=== PATIENT | male | born 1970 | race Caucasian/White ===

== ENCOUNTER 2018-08-23 06:19 | Emergency (ER) | payer SELFPAY ==
[2018-08-23 06:20] VITALS: PULSE 85; RESP 16; TEMP 36.4; O2SAT 97; BMI 28.7
--- NOTE | 2018-08-23 06:28 | ED.DCSUM_ITS ---
- ER Visit Summary Date of Service: 08/23/18 Chief Complaint: Hives History of Present Illness: The patient is a 47 M who presents with hives. He states that the symptoms actually started last night. He states he developed some itching and burning on the backside of his legs and his arms. When he woke up this morning he noticed that he had hives. He denies any new irritants such as soaps, lotions, detergents or pets. He states this happened a long time ago but is not quite sure what exactly the cause was at that time as well. He denies any insect stings. He took nothing for this at home. He denies any shortness of breath or tongue swelling. Physical Examination: Vital signs reviewed. HEENT exam is normal. There is no tongue or throat swelling. Uvula is midline. Heart is regular rate and rhythm without murmurs. Lungs are clear to auscultation bilaterally. Abdomen is soft and nontender. Extremities reveal no edema. Skin exam reveals hives on the arms and legs. There is no erythema. Neurologic exam normal. Test Results: None performed Emergency Department Course and Treatment: I am unclear the etiology of the patient's urticaria. Patient will be given Benadryl and prednisone here. I wi ll give him a prescription for prednisone at home. I will observe him here in the emergency department and then will be discharged with prednisone and to use Benadryl. He will follow-up with his primary care physician. Treatment Plan: [] Disposition: Discharge Impression: Urticaria This note was generated with [employer] dictation software. It may contain incorrect words, spelling, and punctuation that were not noted in review of the chart prior to signing ED Disposition - Plan for ED Patient: Chief Complaint: Allergic Reaction Referrals: Josee Prieto MD [Primary Care Provider] -
--- NOTE | 2018-08-23 06:28 | ED.DEP ---
ED Disposition - Plan for ED Patient: Disposition: Home or Assisted Living Chief Complaint: Allergic Reaction Instructions: ED Urticaria Prescriptions: Prednisone [Deltasone] 40 mg PO DAILY #10 tab Referrals: Josee Prieto MD [Primary Care Provider] -
[2018-08-23] MEDS: DiphenhydrAMINE 25 MG Capsule PO (06:32)
[2018-08-23] MEDS: predniSONE 20 MG Tablet 40 MG PO (06:32)
[2018-08-23 07:00] VITALS: BP 134/90; RESP 16
== END 2018-08-23 07:00 | disposition home or self-care (01) ==
LOC: ED 06:36
PROVIDERS: Emergency Provider Emergency Medicine; Family Provider Internal Medicine; PCP Internal Medicine
DX: L50.9 Urticaria, unspecified (principal); I10 Essential (primary) hypertension; Z72.0 Tobacco use; Z79.899 Other long term (current) drug therapy
CPT/HCPCS: 99283

== ENCOUNTER 2019-07-23 21:38 | Emergency (ER) | payer SELFPAY ==
[2019-07-23 21:39] VITALS: BP 160/102; PULSE 61; RESP 16; TEMP 36.4; O2SAT 98; BMI 29.7
--- NOTE | 2019-07-23 21:52 | NURSING ---
pt c/o pain starting in left flank radiating into left testicle. denies any burning or painful urination.
--- NOTE | 2019-07-23 21:58 | CT_ITS ---
STUDY: CT ABDOMEN AND PELVIS WITHOUT CONTRAST REASON FOR EXAM: Male, 48 years old. Left flank and back pain beginning tonight. History of kidney stones and hypertension. RADIATION DOSAGE (If Supplied By Facility): CTDIvol = ( 7.67 ) mGy, DLP = ( 383.36 ) mGycm TECHNIQUE: Transaxial images were obtained from the dome of the diaphragm to the symphysis pubis without oral contrast, and without intravenous contrast. Sagittal and coronal images were reconstructed. Individualized dose optimization techniques were used for this CT. COMPARISON: CT of the abdomen and pelvis, November 20, 2015. FINDINGS: The visualized lung bases are unremarkable. The visualized portions of the heart are within normal limits. Normal liver. Normal gallbladder and extrahepatic biliary system. There is a benign calcified granuloma of the spleen. Normal pancreas. Normal bilateral adrenal glands. Normal right kidney. Normal right ureter. The left kidney is normal in size and cortical thickness. There is a 4 mm nonobstructing calculus in an upper pole calyx. Normal left ureter. Normal visualized stomach. Normal small intestine. Normal colon. C lies in the left pelvis with the normal appendix lying adjacent to the rectosigmoid colon. The Normal abdominal aorta. Normal inferior vena cava. Normal retroperitoneum. Normal urinary bladder. Prostate is enlarged with central calcifications. There are phleboliths in the pelvis without lymphadenopathy. No free air or free fluid is seen within the peritoneal cavity. Normal abdominal wall. There are diffuse degenerative changes of the visualized lumbar spine. CT/Abdomen/Pelvis without Cont IMPRESSION: 1. Nonobstructing left renal calculus. There is no other evidence of renal, ureteral or urinary bladder abnormality. A left ureteral calculus and hydronephrosis seen on the earlier study is no longer present. 2. No other evidence of acute intra-abdominal process or major interval change. Electronically Signed: Singh Gorman DO at 22:48 EDT Tel [phone], Service support ,
[2019-07-23] MEDS: Ketorolac 30 MG/ML Syringe IV (22:14)
[2019-07-23] MEDS: Morphine 4 MG/ML Syringe IV ×2 (22:15→23:28)
[2019-07-23] MEDS: 0.9% Normal Saline 1,000 ML 250 ML IV (22:15)
[2019-07-23] MEDS: Ondansetron 4 MG/2 ML Vial IV (22:15)
--- NOTE | 2019-07-23 22:18 | ED.DCSUM_ITS ---
- ER Visit Summary Date of Service: 07/23/19 Chief Complaint: Left flank pain History of Present Illness: The patient is a [address] Prieto. He reports that this evening he picked up a boat motor and carried down the steps. He had no pain during this. He walked over to begin filling up a bucket and had the abrupt onset of a left flank pain that radiates into the left side of his abdomen and into his left testicle. He reports that is 10 out of 10 at worst and 5-10 currently. Describes as aching. Is worsened by movement and standing up. Is relieved by position. He denies any relation to his legs. No numbness or weakness in his legs. No problems with his bowels or his bladder. No groin numbness. Patient reports is been nauseated with this. However, he is not vomited. He denies any dysuria or frequency. He does have a history of kidney stones. Physical Examination: Vitals: Stable. Afebrile. General: Well-nourished and well-developed. Head: Normocephalic atraumatic. Neck: Supple, no lymphadenopathy. No JVD. Nontender. Cardiovascular: Regular rate and rhythm. No murmurs. Respiratory: No respiratory distress. Clear to auscultation bilaterally. Abdominal: Soft, nontender, nondistended, normal bowel sounds. No guarding, rebound, or peritoneal signs. Back: Nontender. Extremities: Nontender, no edema. Skin: Normal color, no rash. Neurologic: Alert and oriented ?3. Cranial nerves II through XII are intact. Normal strength and sensation. Psych: Normal affect. Test Results: UA shows greater than 100 red blood cells. No evidence of infection. CT flank was read by the radiologist as nonobstructing left renal c alculus. There is no evidence of renal, ureteral, or urinary bladder abnormality. A left ureteral calculus and hydronephrosis seen on the earlier study is no longer present. However, on my review of the CT I believe that there is a very small stone just proximal to the left UVJ. Emergency Department Course and Treatment: Patient had an IV placed. He was given a liter normal saline. He was given Toradol, Zofran, and morphine IV. He is resting more comfortably. Treatment Plan: Patient will be discharged with Percocet, naproxen, and Zofran. Instructed follow-up Dr. Pena in 1 week if not improving. Return to the emergency department for any worsening symptoms. Disposition: To home in improved and stable condition. Impression: 1. Left ureterolithiasis. This note was generated with [employer] dictation software. It may contain incorrect words, spelling, and punctuation that were not noted in review of the chart prior to signing ED Disposition - Plan for ED Patient: Instructions: KIDNEY STONE w/ Colic Prescriptions: Naproxen [Naprosyn] 500 mg PO BID #14 tablet Oxycodone HCl/Acetaminophen [Percocet 5/325] 1 tablet PO Q6H PRN PRN 5 Days #20 tablet PRN Reason: Pain Ondansetron [Zofran Odt] 4 mg PO Q8H PRN PRN #10 tablet PRN Reason: Nausea Referrals: Xavier Pena MD [STAFF PHYSICIAN] - 1 Week if not improving
[2019-07-23 22:47] LABS: Bacteria 0 SEEN /hpf (None Seen); Squamous Epithelial Cells - UA 0 SEEN /hpf (0-5)
[2019-07-23 22:52] LABS: Color, Urine Yellow (Yellow); Glucose, Dipstick Normal (Normal); Ketone-Dipstick 5 mg/dl (Negative); Leukocyte Esterase-Dipstick 25 /ul (Negative); Nitrite-Dipstick Negative (Negative); Occult Blood-Urine 250 /ul (Negative); Protein-Dipstick 30 mg/dl (Negative); Specific Gravity, Urine 1.025 (1.002-1.030); Urine Bilirubin Dipstick Negative (Negative); Urine Clarity Sl. Cloudy (Clear); Urine Urobilinogen 4 mg/dl (Normal)
[2019-07-23 22:57] LABS: Red Blood Cells-Urine > 100 SEEN /hpf (0-5); White Blood Cells 0-5 SEEN /hpf (0-5)
[2019-07-23 22:58] LABS: Mucous, Urine 2+ /hpf (<or=2+)
[2019-07-23 23:48] VITALS: BP 152/125; PULSE 71; RESP 18; O2SAT 97
== END 2019-07-23 23:49 | disposition home or self-care (01) ==
LOC: ED 22:37
PROVIDERS: Emergency Provider Emergency Medicine; Family Provider Internal Medicine; PCP Internal Medicine
DX: N13.2 Hydronephrosis with renal and ureteral calculous obstruction (principal); Z79.899 Other long term (current) drug therapy; Z87.442 Personal history of urinary calculi
CPT/HCPCS: 74176; 81001; 96361; 96374; 96375; 96376; 99284; J7030; A4216; J2405

== ENCOUNTER 2020-05-12 22:33 | Emergency (ER) | payer SELFPAY ==
[2020-05-12 22:34] VITALS: BP 139/92; PULSE 79; RESP 18; TEMP 36.4; O2SAT 97; BMI 27.8
--- NOTE | 2020-05-12 22:52 | ED.DCSUM_ITS ---
- ER Visit Summary Date of Service: 05/12/20 Chief Complaint: Right foot puncture wound History of Present Illness: The patient is a 49 M who has a puncture wound on the right foot. He stepped on a nail about 10 hours ago. He was wearing flip- flops at the time. He stepped over a piece of wood and came down the right foot under this nail. He removed it immediately. He is last tetanus is unknown. He tried ibuprofen for the pain. Today he noted that he had second toe bruising. The puncture wound was in the mid to rear portion of the bottom of the foot so he was concerned about this bruising. Physical Examination: Vital signs are reviewed. Right foot exam reveals tenderness on the bottom of the foot near this puncture wound. There is no erythema or bleeding near the puncture wound. His right second toe is diffusely tender with ecchymosis on the proximal part of the toe. He has decreased range of motion secondary to pain. Capillary refill is normal. Test Results: Right foot x-ray negative Emergency Department Course and Treatment: Patient will be treated with Cipro for his right foot wound because went through his shoe. X-rays do not show any broken bones. He was educated on local wound care. Treatment Plan: [] Disposition: Discharge Impression: Right foot puncture wound This note was generated with [employer] dictation software. It may contain incorrect words, spelling, and punctuation that were not noted in review of the chart prior to signing ED Disposition - Plan for ED Patient: Disposition: Home or Assisted Living Instructions: ED Wound Puncture Foot Prescriptions: Ciprofloxacin [Cipro] 500 mg PO BID #10 tab Transmission Status: Pending to [facility]30 Referrals: Josee Prieto MD [Primary Care Provider] -
--- NOTE | 2020-05-12 23:00 | RAD_ITS ---
HISTORY: Pt stepped on nail. Injury to second toe. 2nd toe now bruised and painful. ADDITIONAL HISTORY: None provided. EXAMINATION/TECHNIQUE: XR Foot Min 3 Views Right Number of images including paperwork: 3 COMPARISON: None FINDINGS: BONES: No acute fracture. JOINTS: No subluxation. SOFT TISSUES: No distinct foreign body. RAD/Foot min 3 Views IMPRESSION: No acute osseous abnormality. at 2339 Reported and signed by: Ronda Koroma MD Electronically Signed: Ronda Koroma MD at 23:39 EDT Tel , Service support ,
[2020-05-12] MEDS: Diphth,Pertuss(Acell),Tet Vac 0.5 ML Vial IM (23:32)
[2020-05-12 23:51] VITALS: PULSE 80; RESP 16
[2020-05-12] MEDS: Ciprofloxacin 500 MG Tablet PO (23:53)
== END 2020-05-12 23:57 | disposition home or self-care (01) ==
PROVIDERS: Emergency Provider Emergency Medicine; PCP Internal Medicine
DX: S91.331A Puncture wound without foreign body, right foot, initial encounter (principal); W45.0XXA Nail entering through skin, initial encounter; Y93.01 Activity, walking, marching and hiking; Y92.9 Unspecified place or not applicable; Y99.9 Unspecified external cause status; I10 Essential (primary) hypertension; Z79.899 Other long term (current) drug therapy
CPT/HCPCS: 73630; 90715; 99284

== ENCOUNTER 2020-05-24 19:37 | Emergency (ER) | payer SELFPAY ==
[2020-05-24 19:38] VITALS: BP 121/100; PULSE 82; RESP 16; TEMP 36.6; O2SAT 98; BMI 28.2
--- NOTE | 2020-05-24 20:47 | ED.VIS.GEN ---
History of Present Illness Chief Complaint: Numb/Ting Informant: Patient Onset: Days Context: Gradual Onset Timing: Intermittent Narrative: Patient is a 49-year-old male with longstanding history of longstanding anxiety and hypertension presenting with generalized malaise and worsening anxiety. Patient states he has not been feeling good for the past few days. He states his been feeling lightheaded. He notes his anxiety has been worse the last few days as well. He also notes he has had diarrhea but attributes that to his recent use of ciprofloxacin for a puncture wound to his foot. Patient had 4 days of the Cipro but then stopped it because he thought it was making him tired. He states today he had an episode where he was sitting down and when he went to stand up he felt that his legs were numb. He walked around for about 20 minutes and then he started to get numbness and tingling in his arms and lower back. Patient currently denies any paresthesias. He notes he is also had urinary frequency for the past day. He denies any associated dysuria or hematuria. In addition he has had some right upper dental pain for the past week. He states for a couple days his jaw was sore but that has now gone away. He now feels that he maybe has a swollen lymph node in his right neck. Patient tried taking Ativan which she has prescribed at 7 PM, about an hour and a half prior to arrival with no relief of his symptoms. He denies any associated nausea, vomiting or abdominal pain. He denies any chest pain, shortness of breath or difficulty breathing. He denies any black or blood in his stool. He states he uses tobacco and marijuana regularly but denies any illicit drug use. Past Medical History - Allergies and Home Meds Allergies/Adverse Reactions: Allergies No Known Allergies Allergy (Verified 05/24/20 19:40) Primary Care Physician: [facility]GROUP OF [facility]YSICIANS] - Josee Prieto MD [Primary Care Provider] - Past Medical History: - - Anxiety, hypertension Surgical History: noncontributory Lives: Spouse/ Significant Other Smoking Status: Current every day smoker Alcohol: None Drugs: Marijuana Review of Systems General: Reports: Malaise. Denies: Chills, Fever, Sweats Eyes: Denies: Visual changes - bilaterally, Diplopia ENT: Reports: - - Right upper dental pain. Denies: Rhinorrhea, Sore throat Cardiovascular: Denies: Chest pain, Palpitations Respiratory: Denies: Dyspnea, Cough, Dyspnea on exertion Gastrointestinal: Reports: Diarrhea. Denies: Abdominal pain, Nausea, Vomiting, Melena, Hematochezia Genitourinary: Denies: Dysuria, Hematuria, Frequency Musculoskeletal: Denies: Back pain, Extremity Pain Skin: Denies: Rash, Wounds Neurological: Reports: Parasthesia. Denies: Headache, Weakness, Numbness Psych: Reports: Anxiety. Denies: Depression, Suicidal thoughts, Suicidal ideations Physical Exam Vital Signs/Narrative: Vital Signs Temp Pulse Resp BP Pulse Ox 05/24/20 19:38 97.9 F 82 16 121/100 H 98 Inital Vital Signs reviewed: Yes General: Well nourished, Well developed, No Acute Distress Head: Normocephalic, Atraumatic Eyes: EOMI, - - Patient does not have his right eye ENT: Moist mucous membranes, No rhinorrhea, TM's clear, - - Scattered dental caries, no associated dental abscess or tenderness palpation of the specific tooth. Sublingual mucosa is soft. No oral pharyngeal edema present. Neck: Supple, Nontender Cardiovascular: Regular rate, Regular rhythm, No murmurs Respiratory: No distress, CTA bilaterally, Chest nontender Abdomen: Soft, Nontender, Nondistended, Normal bowel sounds Back: Nontender, Normal Inspection Extremities: Nontender, No edema Skin: Normal color, No rash Neurological: Alert, Oriented x3, Cranial nerves II-XII grossly intact, Normal Strength, Normal Sensation, Normal Gait, - - Normal coronation with [id number], normal entry level account executive strength as well as plantar and dorsiflexion.. Negative for: Parasthesia, Weakness, Left side facial droop, Right side facial droop Psychological: Normal affect, Normal Mood, - - Anxious, no HI or SI Diagnostic/Tx/Re-eval Chest X-Ray - ED: 1 View, Read by ED Physician, Read by Radiologist, No Acute Disease Clinical Impression(s) from Imaging Studies Chest X-Ray 05/24/20 21:03 IMPRESSION: No acute cardiopulmonary pathology. Electronically Signed: Chris Carney MD at 21:34 EDT , Service support , Laboratory Data 05/24/20 05/24/20 05/24/20 20:10 20:10 20:55 WBC 8.4 RBC 5.00 Hgb 15.5 Hct 44.5 MCV 89.0 MCH 31.0 MCHC 34.8 RDW Std Deviation 37.0 RDW Coeff of Roland 11.6 Plt Count 162 MPV 10.4 Immature Gran % (Auto) 0.400 Neut % (Auto) 69.0 Lymph % (Auto) 19.9 Harper % (Auto) 7.9 Eos % (Auto) 2.3 Baso % (Auto) 0.5 Absolute Neuts (auto) 5.8 Absolute Lymphs (auto) 1.67 Nucleated RBC % 0 Sodium 139 Potassium 3.8 Chloride 109 H Carbon Dioxide 24.0 Anion Gap 6 BUN 13 Creatinine 0.86 Estim Creat Clear Calc 103.90 Est GFR (MDRD) Af Amer 121 Est GFR (MDRD) Non-Af 100 BUN/Creatinine Ratio 15.0 Glucose 109 H Calcium 8.2 L Magnesium 2.0 Total Bilirubin 0.50 AST 11 L ALT 27 Alkaline Phosphatase 75 Troponin I < 0.015 Total Protein 6.7 Albumin 3.6 Globulin 3.1 Albumin/Globulin Ratio 1.2 Lipase 138 TSH 1.97 Urine Color Yellow Urine Clarity Clear Urine pH 6.0 Ur Specific [place] 1.015 Urine Protein Negative Urine Glucose (UA) Normal Urine Ketones Negative Urine Occult Blood Negative Urine Nitrite Negative Urine Bilirubin Negative Urine Urobilinogen Normal Ur Leukocyte Esterase Negative Urine RBC 0 SEEN Urine WBC 0 SEEN Ur Squamous Epith Cells 0 SEEN Urine Bacteria RARE Urine Mucus RARE - Rhythm Strip Rhythm Strip: Sinus Rhythm Rate: 63 Ectopy: None - EKG Initial EKG Interpretation: Sinus Rhythm, - - Sinus rhythm at a rate of 63 Normal intervals Normal axis Normal ST segments Compared to prior EKG on 07/16/2017 no significant changes - Medical Decision Making Patient is evaluated for worsening anxiety, generalized malaise and an episode of paresthesias in all of his extremities that started his legs were moved to his arms and lower back. Patient appears nontoxic and in no acute distress however he is slightly anxious. He has a normal neurologic exam. His presentation is not consistent with an acute stroke. Given his vague symptoms I did check lab work including CBC,CMP, TSH, troponin and UA. This is all grossly normal. Chest x-rays not show any acute cardiopulmonary process. EKG does not show any acute changes. Patient is given IV fluids in the emergency room. He is evaluated by case management who gives him outpatient resources. I do suspect that patient's underlying problem is his anxiety which is what is causing his symptoms today. He is counseled that is possible he could have a more subtle process that needs outpatient follow-up. He is given PCP for outpatient follow-up as well as information for the counseling center. Patient is counseled on signs and symptoms requiring return to the emergency room. Patient verbalizes agreement and understand this plan. Patient discharged home in stable and improved condition. ED Disposition - Plan for ED Patient: Disposition: Home or Assisted Living Diagnosis: Paresthesias, Stress reaction Instructions: ED Stress React, ED Paraesthesias Referrals: Josee Prieto MD [Primary Care Provider] - [facility]GROUP [facility]YSICIANS] -
[2020-05-24 20:55] LABS: Absolute Lymphocyte Count 1.67 X10^3/uL (0.83-4.51); Absolute Neutrophil Count 5.8 X10^3/uL (2.0-7.7); Basophil# 0.04 X10^3/uL; Basophil% 0.5 % (0-1); Eosinophil# 0.19 X10^3/uL; Eosinophils% 2.3 % (0-5); Hematocrit 44.5 % (40-54); Hemoglobin 15.5 g/dL (13.0-16.5); Lymphocyte # 1.67 X10^3/ul (4.0); Lymphocyte % 19.9 % (19-41); Mean Corp Hgb Conc 34.8 g/dL (32-36); Mean Platelet Vol. 10.4 fl (6.2-12.0); Monocyte# 0.66 X10^3/uL; Monocyte% 7.9 % (0-10); NRBC Flagged by Analyzer 0 % (0-5); Neutrophil # 5.81 X10^3/uL (2.7-7.7); Platelet Count 162 K/mm3 (150-450); RBC Distribution Width CV 11.6 % (11.6-14.6); White Blood Count 8.4 K/mm3 (4.4-11.0)
[2020-05-24] MEDS: 0.9% Normal Saline 1,000 ML 1000 ML IV (20:56)
--- NOTE | 2020-05-24 21:03 | RAD_ITS ---
STUDY: X-RAY CHEST REASON FOR EXAM: Male, 49 years old. CHEST PAIN TECHNIQUE: AP portable COMPARISON: July 16, 2017 FINDINGS: There is minor interstitial thickening in the lingula. Lungs are otherwise clear. There is no demonstrated pleural abnormality. Normal size heart. Normal mediastinum and elva. Normal visualized pulmonary arteries. Normal visualized aortic arch and descending thoracic aorta. Normal visualized thoracic spine. Normal visualized ribs, clavicles, and shoulders. There is no demonstrated abnormality of the visualized soft tissue structures of the upper abdomen. No significant changes since prior study RAD/Chest 1 View (Portable) IMPRESSION: No acute cardiopulmonary pathology. Electronically Signed: Chris Carney MD at 21:34 EDT , Service support ,
[2020-05-24 21:05] LABS: Red Blood Cells-Urine 0 SEEN /hpf (0-5); Squamous Epithelial Cells - UA 0 SEEN /hpf (0-5); White Blood Cells 0 SEEN /hpf (0-5)
[2020-05-24 21:07] LABS: Color, Urine Yellow (Yellow); Glucose, Dipstick Normal (Normal); Ketone-Dipstick Negative (Negative); Leukocyte Esterase-Dipstick Negative /ul (Negative); Nitrite-Dipstick Negative (Negative); Occult Blood-Urine Negative /ul (Negative); Protein-Dipstick Negative (Negative); Specific Gravity, Urine 1.015 (1.002-1.030); Urine Bilirubin Dipstick Negative (Negative); Urine Clarity Clear (Clear); Urine Urobilinogen Normal (Normal)
[2020-05-24 21:16] LABS: Bacteria RARE /hpf (None Seen); Mucous, Urine RARE /hpf (<or=2+)
[2020-05-24 21:21] LABS: ALB/GLOB Ratio 1.2 RATIO (0.9-2.4); AST(SGOT) 11 U/L (15-37); Alanine Aminotransfer ALT/SGPT 27 U/L (16-61); Albumin, Serum 3.6 g/dL (3.2-5.0); Alkaline Phosphatase 75 U/L (45-117); Anion Gap 6 (5-15); BUN 13 mg/dL (7-18); Calcium,Total 8.2 mg/dL (8.5-10.1); Chloride 109 mmol/L (98-107); Creatinine, Serum 0.86 mg/dL (0.70-1.30); EST Glomerular Filtration Rate 100 mL/min (>60); Est Glom Filt Rate - Afr Amer 121 mL/min (>60); Globulin 3.1 g/dL (2.2-4.2); Glucose 109 mg/dL (74-106); Lipase 138 U/L (73-393); Potassium 3.8 mmol/L (3.5-5.1); Protein, Total 6.7 g/dL (6.4-8.2); Sodium Level 139 mmol/L (136-145); Thyroid Stim Hormone (TSH) 1.97 uIU/mL (0.358-3.74)
[2020-05-24 21:55] VITALS: BP 130/88; PULSE 61; RESP 18; O2SAT 98
--- NOTE | 2020-05-24 22:21 | CM.ED ---
Social Work Consult: Anxiety Informant: Dr. Reyes Chief Complaint: Patient Reports anxiety today that patient was not able to control. Living Situation: Lives with significant otherPauly Marital/Social History: Single Support/Resources: Family/friends. No active counseling services. 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 Mental Health Treatment/History: Anxiety. Reports to manage anxiety by taking Lorazepam every now and then. Denies any other medication management. No history of inpatient psychiatric services. Triggers/Stressors: not sure. Coping Skills: Talking with others. putting my tool belt on. Abuse Issues: Denies Substance Abuse Hx: Reports use of THC. Reports history of alcohol abuse but no active use. Risk to Self/Others: Denies any active suicidal thoughts/plans/intents or history of. Assessment: Met with patient in room. 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 Patient is agreeable to speaking with this high school social science teacher. Patient states to have episodes of Anxiety. Patient states to have had episodes since patient was 21 years old. Patient unable to provide this high school social science teacher with ways of how patient has managed anxiety. Patient states It is out of control over the years. Patient states purpose for living and wanting to live. Patient counseled on lethal means. This high school social science teacher able to facilitate conversation with patient about how anxiety can affect the physical body. Patient talking down about self multiple times. This high school social science teacher exploring positive things patient has done over the years to manage anxiety and assisting patient in remembering these things. Patient is not sure about counseling services. Patient does not have insurance and does not qualify for medicaid. Patient is unable to afford medical insurance. This high school social science teacher did provide patient with counseling resources and supports and encouraged patient to explore self-pay options. Patient is forward thinking and reports to have needed support in the community. Active support and listening provided. Updated Dr. Reyes on assessment. PLAN: Discharge to home. DERICK Florez
[2020-05-24 23:12] VITALS: BP 133/78; PULSE 71; RESP 16; O2SAT 96
== END 2020-05-24 23:22 | disposition home or self-care (01) ==
PROVIDERS: Emergency Provider Emergency Medicine; PCP Internal Medicine
DX: R20.2 Paresthesia of skin (principal); F43.9 Reaction to severe stress, unspecified; F41.9 Anxiety disorder, unspecified; R20.0 Anesthesia of skin; K02.9 Dental caries, unspecified; I10 Essential (primary) hypertension; R35.0 Frequency of micturition; R42 Dizziness and giddiness; R53.81 Other malaise; F17.200 Nicotine dependence, unspecified, uncomplicated; Z79.899 Other long term (current) drug therapy
CPT/HCPCS: 71045; 80053; 81001; 83690; 83735; 84443; 84484; 85025; 93005; 96360; 99284; J7030; A4216

== ENCOUNTER 2021-04-14 18:59 | Emergency (ER) | payer SELFPAY ==
[2021-04-14 19:00] VITALS: BP 150/76; PULSE 71; RESP 17; TEMP 36.8; O2SAT 96; BMI 29.5
--- NOTE | 2021-04-14 19:04 | EKG12_ITS ---
Test Reason : DYSRHYTHMIA Blood Pressure : / mmHG Vent. Rate : 064 BPM Atrial Rate : 064 BPM P-R Int : 120 ms QRS Dur : 086 ms QT Int : 374 ms P-R-T Axes : 054 031 019 degrees QTc Int : 385 ms Normal sinus rhythm Normal ECG Confirmed by GENEVIEVE JONES, TERRENCE ([id number]), commercial production editor ERIC WHALEN ([id number]) on 04/18/2021 1:55:06 PM Referred By: KAMINI Confirmed By:TERRENCE VALLEJO MD
[2021-04-14 19:15] LABS: Absolute Lymphocyte Count 1.96 X10^3/uL (0.83-4.51); Absolute Neutrophil Count 4.1 X10^3/uL (2.0-7.7); Basophil# 0.05 X10^3/uL; Basophil% 0.7 % (0-1); Eosinophil# 0.28 X10^3/uL; Hematocrit 47.7 % (40-54); Hemoglobin 16.1 g/dL (13.0-16.5); Lymphocyte # 1.96 X10^3/ul (0.83-4.51); Mean Corp Hgb Conc 33.8 g/dL (32-36); Mean Corpuscular Hgb 29.9 pg (27.0-32.0); Mean Corpuscular Volume 88.7 fL (80-94); Monocyte# 0.59 X10^3/uL; Monocyte% 8.4 % (0-10); NRBC Flagged by Analyzer 0 % (0-5); Neutrophil % 58.6 % (47-70); Platelet Count 166 K/mm3 (150-450); RBC Distribution Width CV 11.9 % (11.6-14.6); RBC Distribution Width SD 38.5 fl (35.1-43.9); Red Blood Count 5.38 M/mm3 (4.6-6.2)
--- NOTE | 2021-04-14 19:21 | EX.ED.DYSGE1 ---
HPI History of Present Illness Chief Complaint: Shortness of Breath Narrative Narrative: The patient reports for 1 week he has felt as if he has chest congestion sense of anxiety and nervousness occasionally feels a sense of chest pressure, he has had really no cough no fever no abdominal pain no numbness weakness paresthesias, he has no history of [place] PE or DVT no cardiovascular or pulmonary history. Indicates he feels very anxious and nervous he has panic and anxiety syndrome as well but he does not necessarily have any reason to be anxious or nervous, he has had no coronavirus exposures has not been vaccinated, he is eating and drinking with this episode he has had quite a bit of diarrhea and sense of fever but nothing documented diarrhea is loose and watery no tainted food exposure no exposure to sick individuals [facility] Medical History (Updated 04/14/21 @ 20:[address] Anna Aguilar MD) Anxiety Hypertension Home Medications atenolol 25 mg PO DAILY 04/25/17 [History Last Taken 07/16/17] albuterol sulfate [Ventolin HFA] 1 - 2 puff INHALATION Q4H PRN PRN #1 inhaler 04/14/21 [Rx Last Taken Unknown] Allergy/AdvReac Type Severity Reaction Status Date / Time No Known Allergies Allergy Verified 04/14/21 18:59 Social History Smoking Status: Current every day smoker tobacco type: cigarettes ROS ROS ED Constitutional Constitutional ED: Reports fever(s), subjective, sweats and other; Denies chills or weight loss Eyes Eyes: Denies blurry vision or change in vision ENT ENT ED: Denies ear pain Cardiovascular Cardiovascular: Denies chest pain or palpitations Respiratory/Chest Respiratory/Chest: Denies dyspnea Gastrointestinal Gastrointestinal: Denies abdominal pain, nausea or vomiting Genitourinary Genitourinary ED: Denies dysuria or hematuria Musculoskeletal Musculoskeletal: Denies arthralgias or myalgias Integumentary Reports rash; Denies abscess Neurologic Neurologic: Denies weakness Psychiatric Psychiatric: Denies anxiety or depression Endocrine Endocrinology: Denies polydipsia or polyuria Allergic/Immunologic Allergic/Immunologic ED: Denies urticaria EXAM Physical Exam Narrative Exam Narrative: His lungs are clear heart tones are normal vital signs are normal he is in no distress with no complaints at this time see the above Const Vital Signs: 04/14/21 19:00 04/14/21 19:13 Temperature 98.3 F Temperature Source Temporal Pulse Rate 71 Respiratory Rate 17 Blood Pressure 150/76 H Blood Pressure Mean 100 Pulse Ox 96 Oxygen Delivery Method Room Air Room Air Positive well developed General Appearance ED: well developed HEENT Reports normocephalic Negative for trauma Eyes EOMs intact bilaterally Neck supple Chest Wall inspection of chest normal Resp normal respiratory effort Cardio regular rate GI non-tender and non-distended Back/Spine Back/Spine Narrative: unremarkable Extremity normal to inspection Neuro oriented x3 and CN's II-XII intact bilaterally Sensorium / Orientation: alert Psych mental status grossly normal Skin no rashes or lesions noted MDM MDM MDM Narrative Medical decision making narrative: He is in no distress his vital signs are unremarkable his EKG shows a sinus with nothing acute rate 64 he really complains of a sense of a whole body anxiety he has no reason to be anxious however given all the above 80 screening evaluation Patient's 1 view chest x-ray to my review shows findings consistent with COPD nothing else acute see the radiology report, the screening labs are all generally unremarkable, the EKG shows sinus rhythm rate 64 no acute injury, all ED screening labs are generally unremarkable reevaluation is feeling much better his symptoms are resolved we discussed inpatient versus outpatient management he does not wish to be admitted he did not realize he had COPD he will be given a Proventil inhaler he did question the management of the copious diarrhea and I explained to him to continue to force fluids follow-up with outpatient providers high-fiber diet and return for change in symptoms as he understands exact etiology of this sense of shortness of breath congestion is unclear but again he prefers outpatient management Home stable Final impression transient shortness of breath resolved sense of anxiety diarrhea Lab Data Labs: Laboratory Results - last 24 hr 04/14/21 04/14/21 04/14/21 19:11 19:11 19:11 WBC 7.0 RBC 5.38 Hgb 16.1 Hct 47.7 MCV 88.7 MCH 29.9 MCHC 33.8 RDW Std Deviation 38.5 RDW Coeff of Roland 11.9 Plt Count 166 MPV 10.0 Immature Gran % (Auto) 0.300 Neut % (Auto) 58.6 Lymph % (Auto) 28.0 [place] % (Auto) 8.4 Eos % (Auto) 4.0 Baso % (Auto) 0.7 Absolute Neuts (auto) 4.1 Absolute Lymphs (auto) 1.96 Nucleated RBC % 0 D-Dimer Quant (PE/DVT) Sodium 139 Potassium 4.2 Chloride 109 H Carbon Dioxide 25.0 Anion Gap 5 BUN 12 Creatinine 0.94 Estim Creat Clear Calc 94.02 Est GFR (MDRD) Af Amer 109 Est GFR (MDRD) Non-Af 90 BUN/Creatinine Ratio 12.8 Glucose 97 Calcium 8.5 Troponin I < 0.015 B-Natriuretic Peptide 71.6 04/14/21 04/14/21 19:25 19:25 WBC RBC Hgb Hct MCV MCH MCHC RDW Std Deviation RDW Coeff of Roland Plt Count MPV Immature Gran % (Auto) Neut % (Auto) Lymph % (Auto) [place] % (Auto) Eos % (Auto) Baso % (Auto) Absolute Neuts (auto) Absolute Lymphs (auto) Nucleated RBC % D-Dimer Quant (PE/DVT) < 0.27 L Sodium Potassium Chloride Carbon Dioxide Anion Gap BUN Creatinine Estim Creat Clear Calc Est GFR (MDRD) Af Amer Est GFR (MDRD) Non-Af BUN/Creatinine Ratio Glucose Calcium Troponin I B-Natriuretic Peptide Cancelled Radiography Diagnostic Testing: Radiology Impression Chest X-Ray 04/14/21 19:28 IMPRESSION: Normal x-ray examination of the chest. Electronically Signed: Bijan Pizano DO at 20:50 EDT Tel [phone], Service support , Discharge Plan Triage Chief Complaint: Shortness of Breath ED Provider: Anna Aguilar Dx/Rx/DC Orders Clinical Impression: COPD (chronic obstructive pulmonary disease) Instructions: ED COPD Flare Prescriptions: New albuterol sulfate [Ventolin HFA] 1 INHALER inhaler 1 - 2 puff inhalation Q4H PRN PRN (Reason: Wheezing) Qty: 1 RF: 0 No Action atenolol 25 MG tablet 25 mg PO DAILY RF: 0 Primary Care Provider: Josee Prieto Referrals: Josee Prieto MD [Primary Care Provider] -
--- NOTE | 2021-04-14 19:28 | RAD_ITS ---
STUDY: X-RAY CHEST REASON FOR EXAM: Male, 50 years old. Chest pain TECHNIQUE: Frontal view COMPARISON: 05/24/2020. FINDINGS: The lungs are clear and expanded. There is no demonstrated pleural abnormality. Normal size heart. Normal mediastinum and elva. Normal visualized pulmonary arteries. Normal visualized aortic arch and descending thoracic aorta. Normal visualized thoracic spine. Normal visualized ribs, clavicles, and shoulders. There is no demonstrated abnormality of the visualized soft tissue structures of the upper abdomen. RAD/Chest 1 View (Portable) IMPRESSION: Normal x-ray examination of the chest. Electronically Signed: Bijan Pizano DO at 20:50 EDT Tel [phone], Service support ,
[2021-04-14 19:33] LABS: Anion Gap 5 (5-15); BUN 12 mg/dL (7-18); BUN/Creat Ratio 12.8 RATIO (10-20); Calcium,Total 8.5 mg/dL (8.5-10.1); Chloride 109 mmol/L (98-107); Creatinine, Serum 0.94 mg/dL (0.70-1.30); EST Glomerular Filtration Rate 90 mL/min (>60); Est Glom Filt Rate - Afr Amer 109 mL/min (>60); Estimated Creatinine Clearance 94.02 ml/min; Glucose 97 mg/dL (74-106); Potassium 4.2 mmol/L (3.5-5.1); Sodium Level 139 mmol/L (136-145)
[2021-04-14 19:40] LABS: BNP,B-Type NATRIURETIC PEPTIDE 71.6 pg/mL (0-100)
[2021-04-14 19:50] LABS: D-Dimer Quantitative (DVT/PE) < 0.27 FEU/ug/m (0.27-0.49)
[2021-04-14] MEDS: LORazepam 2 MG/ML Syringe 1 MG IV (20:18)
[2021-04-14 21:03] VITALS: BP 134/90; PULSE 58; RESP 16; O2SAT 98
== END 2021-04-14 21:04 | disposition home or self-care (01) ==
PROVIDERS: Emergency Provider Emergency Medicine; PCP Internal Medicine
DX: J44.9 Chronic obstructive pulmonary disease, unspecified (principal); Z20.822 Contact with and (suspected) exposure to COVID-19; F41.9 Anxiety disorder, unspecified; R19.7 Diarrhea, unspecified; I10 Essential (primary) hypertension; F17.210 Nicotine dependence, cigarettes, uncomplicated; Z79.899 Other long term (current) drug therapy
CPT/HCPCS: 71045; 80048; 83880; 84484; 85025; 85379; 87426; 93005; 96374; 99283; A4216

== ENCOUNTER 2021-08-25 23:57 | Emergency (ER) | payer SELFPAY ==
[2021-08-25 23:57] VITALS: BP 142/92; PULSE 66; RESP 18; TEMP 36.7; O2SAT 100; BMI 31.0
--- NOTE | 2021-08-26 00:37 | EDS_ITS ---
HPI History of Present Illness Chief Complaint: Rash Narrative Narrative: Patient is a 50-year-old male who states he was cutting down a tree that was covered in poison tomas on Sunday. He states Sunday he noticed some rash and irritation to his arms and legs. He states this time is past the rash has worsened and now it is present along his neck and face. He denies any other known exposures than the plants and states that he has no difficulty breathing or swallowing but secondary to the worsening rash presents for evaluation. [facility] Medical History Anxiety Hypertension Home Medications atenolol 25 mg PO DAILY 04/25/17 [History Last Taken 07/16/17] albuterol sulfate [Ventolin HFA] 1 - 2 puff INHALATION Q4H PRN PRN #1 inhaler 04/14/21 [Rx Last Taken Unknown] prednisone 10 mg PO DAILY #30 tab 08/26/21 [Rx Last Taken Unknown] Allergy/AdvReac Type Severity Reaction Status Date / Time No Known Allergies Allergy Verified 08/26/21 00:00 Social History Smoking Status: Current every day smoker tobacco type: cigarettes ROS ROS ED Constitutional Constitutional ED: Denies chills or fever(s) ENT ENT ED: Denies sore throat Cardiovascular Cardiovascular: Denies chest pain Respiratory/Chest Respiratory/Chest: Denies cough or dyspnea Gastrointestinal Gastrointestinal: Denies abdominal pain, diarrhea, nausea or vomiting Genitourinary Genitourinary ED: Denies dysuria Musculoskeletal Musculoskeletal: Denies myalgias Integumentary Reports rash Neurologic Neurologic: Denies headache(s) Hematologic/Lymphatic Hematologic/Lymphatic: Denies easy bleeding or easy bruising EXAM Physical Exam Const Vital Signs: 08/25/21 23:57 Temperature 98.0 F Temperature Source Temporal Pulse Rate 66 Respiratory Rate 18 Blood Pressure 142/92 H Blood Pressure Mean 108 Pulse Ox 100 Oxygen Delivery Method Room Air Positive well nourished and well developed General Appearance ED: well developed HEENT Reports moist mucous membranes HEENT Narrative: No tongue or lip swelling no oral lesions no airway edema or compromise Eyes PERRL and EOMs intact bilaterally Neck supple Resp normal respiratory effort and clear to auscultation bilaterally Cardio regular rate and regular rhythm Extremity normal to inspection Neuro oriented x3 and CN's II-XII intact bilaterally Sensorium / Orientation: alert Psych mental status grossly normal Skin Skin Narrative: Patient has a erythematous blanchable rash that is to the bilateral lower legs and bilateral forearms. There are Kebner lines consistent with contact dermatitis. No involvement of the palms or soles. There is also erythema and rash that extends from the anterior right side neck on the right cheek and orbit region. No secondary changes to suggest infection MDM MDM MDM Narrative Medical decision making narrative: Patient presented to the ER with history and exam most consistent with contact dermatitis. He had no difficulty breathing no tongue or lip swelling and no infectious changes so I felt no need for imaging or laboratory studies. Patient will be treated with Kenalog in the ER and placed on a prednisone taper for home and is otherwise safe for discharge Discharge Plan Triage Chief Complaint: Rash ED Provider: Curt Burch Dx/Rx/DC Orders Clinical Impression: Contact dermatitis Instructions: ED Contact Dermatitis Prescriptions: New prednisone 10 mg tablet 10 mg PO DAILY Qty: 30 RF: 0 No Action atenolol 25 MG tablet 25 mg PO DAILY RF: 0 albuterol sulfate [Ventolin HFA] 1 INHALER inhaler 1 - 2 puff inhalation Q4H PRN PRN (Reason: Wheezing) Qty: 1 RF: 0 Primary Care Provider: Josee Prieto Referrals: Josee Prieto MD [Primary Care Provider] - Disposition Disposition: Home, Self Care
[2021-08-26] MEDS: Triamcinolone Acetonide 40 MG/ML Vial 80 MG IM (00:42)
[2021-08-26 01:03] VITALS: BP 140/87; PULSE 69; RESP 18; O2SAT 96
== END 2021-08-26 01:04 | disposition home or self-care (01) ==
PROVIDERS: Emergency Provider Emergency Medicine; PCP Internal Medicine
DX: L25.9 Unspecified contact dermatitis, unspecified cause (principal); I10 Essential (primary) hypertension; F41.9 Anxiety disorder, unspecified; F17.210 Nicotine dependence, cigarettes, uncomplicated; Z79.899 Other long term (current) drug therapy
CPT/HCPCS: 96372; 99282

== ENCOUNTER 2022-02-12 10:11 | Emergency (ER) | payer SELFPAY ==
[2022-02-12 10:11] VITALS: BP 165/96; PULSE 59; RESP 17; TEMP 35.7; O2SAT 100; BMI 31.6
--- NOTE | 2022-02-12 10:25 | EKG12_ITS ---
Test Reason : BACK PAIN Blood Pressure : / mmHG Vent. Rate : 055 BPM Atrial Rate : 055 BPM P-R Int : 126 ms QRS Dur : 086 ms QT Int : 396 ms P-R-T Axes : 049 039 025 degrees QTc Int : 378 ms Sinus bradycardia Otherwise normal ECG Confirmed by STACEY JONES, MIN ([id number]), legal editor [employer]E [employer] ([id number]) on 02/15/2022 11:23:15 AM Referred By: RENUKA Confirmed By:MIN IBARRA MD
--- NOTE | 2022-02-12 10:26 | EDS_ITS ---
HPI History of Present Illness Chief Complaint: Back Detail of Chief Complaint: Upper back pain for about an hour and 1/2 to 2 hours Informant: patient Narrative Narrative: Patient presents to the emergency department complaint of not feeling well and some upper back pain for the last hour and 1/2 to 2 hours. Patient states that he was going to [employer] when he started feeling discomfort back there. Patient just feels like there is something wrong. Patient states he sometimes gets worked up and has some as needed Ativan that he rarely takes very low dose so he took it half of a half a milligram tablet. Patient complains of some tingling in both arms. He denies any chest pain or abdominal pain. He denies any injury to his back. Denies recent travel or surgery. No prior history of PE or DVT. No cardiac history. Patient states the pain is worse with movement and deep breath. Prior similar symptoms: No PFSH [facility] Medical History (Updated 02/12/22 @ 12:[address] Hien Bustillos, ) Anxiety Hypertension Personal history of kidney stones Home Medications atenolol 25 mg PO DAILY 04/25/17 [History Last Taken 07/16/17] albuterol sulfate [Ventolin HFA] 1 - 2 puff INHALATION Q4H PRN PRN #1 inhaler 04/14/21 [Rx Last Taken Unknown] cyclobenzaprine 10 mg PO TID PRN #20 tablet 02/12/22 [Rx Last Taken Unknown] hydrocodone-acetaminophen 1 tab PO Q4H PRN PRN 2 Days #10 tablet 02/12/22 [Rx Last Taken Unknown] lorazepam 0.5 mg PO PRN PRN 02/12/22 [History Last Taken Unknown] naproxen 500 mg PO BID #14 tab 02/12/22 [Rx Last Taken Unknown] Allergy/AdvReac Type Severity Reaction Status Date / Time No Known Allergies Allergy Verified 02/12/22 10:11 Social History Smoking Status: Current every day smoker tobacco type: cigarettes ROS ROS ED Constitutional Constitutional ED: Reports systems reviewed and no addt'l complaints, except as documented; Denies body ache(s), change in weight or chills Eyes Eyes: Denies acute decrease in peripheral vision, change in vision, double vision or loss of vision ENT ENT ED: Reports none; Denies ear pain, lip swelling, loss taste/smell, neck pain, otalgia or sore throat Cardiovascular Cardiovascular: Reports none; Denies abdominal pain, chest pain with activity, leg edema, lightheadedness, palpitations, rapid heart rate or syncope Respiratory/Chest Respiratory/Chest: Reports none; Denies change in mental status, dry cough, dyspnea, hemoptysis, shortness of breath at rest or shortness of breath with exertion Gastrointestinal Gastrointestinal: Reports none; Denies abdominal pain, change in stool character, diarrhea, hematemesis, hematochezia, melena, rectal bleeding or vomiting Genitourinary Genitourinary ED: Reports none; Denies abdominal discomfort, anuria, dysuria, genital pain or polyuria Musculoskeletal Musculoskeletal: Reports none and back pain; Denies arthralgias, difficulty walking, extremity pain, muscle weakness or myalgias Integumentary Reports none; Denies abscess or rash Neurologic Neurologic: Reports none and paresthesias; Denies abnormal gait, confusion, focal weakness, frequent falls, headache(s), loss of vision, numbness, radicular pain, vertigo or weakness Psychiatric Psychiatric: Reports systems reviewed and no addt'l complaints, except as documented and none; Denies behavioral changes, confusion, difficulty concentrating, hallucinations, suicidal ideation, tactile hallucinations or visual hallucinations Endocrine Endocrinology: Denies none, cold intolerance, excessive sweating, fatigue or heat intolerance Hematologic/Lymphatic Hematologic/Lymphatic: Reports none; Denies anemia, easy bleeding or easy bruising Allergic/Immunologic Allergic/Immunologic ED: Denies as per HPI, none, lip swelling, mouth swelling, throat swelling, tongue swelling or hives EXAM Physical Exam Const Vital Signs: 02/12/22 10:11 02/12/22 11:25 Temperature 96.2 F L Temperature Source Temporal Pulse Rate 59 L 57 L Respiratory Rate 17 19 H Blood Pressure 165/96 H 136/102 H Blood Pressure Mean 119 113 Pulse Ox 100 95 Oxygen Delivery Method Room Air Room Air Positive well nourished and well developed General Appearance ED: well developed and NAD HEENT Reports TM's clear and moist mucous membranes normocephalic and atraumatic; Negative for trauma or tenderness Tympanic Membrane ED: Yes TM's clear Eyes PERRL and EOMs intact bilaterally General Eye ED: Negative for pale conjunctiva or scleral icterus Neck no lymphadenopathy, supple and no JVD General: Negative for tenderness Chest Wall inspection of chest normal and palpation of chest normal Chest: Negative for tenderness Resp normal respiratory effort and clear to auscultation bilaterally Effort and Inspection: Negative for respiratory distress or pain with movement Auscultation: Negative for rhonchi, wheezes or diminished lung sounds Cardio regular rate, regular rhythm, S1 normal heart sound, S2 normal heart sound and no murmurs Peripheral Pulses: pulses 2+ throughout GI normal to inspection, nondistended, normoactive bowel sounds, soft to palpation, non-tender, non-distended and no masses Back/Spine no CVA tenderness and no thoracic nor lumbar tenderness Extremity normal to inspection General Extremety ED: Negative for edema General Extremity: Negative for edema Neuro oriented x3, CN's II-XII intact bilaterally, no sensory deficits noted and gait normal Sensorium / Orientation: awake, alert, oriented to person, oriented to place and oriented to time Motor Exam: strength 5/5 throughout and strength abnormal Psych mental status grossly normal Skin no rashes or lesions noted and no wounds MDM MDM MDM Narrative Medical decision making narrative: IV line established on arrival. Patient was given a milligram of Ativan. Patient also given 4 mg of morphine and given Zo irina. Patient was given 50 mg of Toradol. He did have some pain improvement with that. Patient feels more relaxed. Initially there was some nonspecific changes in his left lower lung and radiology recommended obtaining a CT scan to further evaluate especially given that he is a smoker. CTA of the chest was obtained showed just some atelectatic changes in the lower lobes otherwise no infiltrates or other acute disease process. There was no evidence of PE or dissection. At this point suspect likely musculoskeletal pain. Patient was started on Naprosyn, Flexeril, and Simpson. He is advised to follow-up with his primary care physician 3 to 5 days. Patient to return if worsening pain, increasing shortness of breath, fever, or conditions worsen anyway. Lab Data Attestation: I reviewed the patient's lab results. Labs: Laboratory Results - last 24 hr 02/12/22 02/12/22 02/12/22 10:30 10:30 10:30 WBC 6.0 RBC 5.47 Hgb 16.8 H Hct 48.6 MCV 88.8 MCH 30.7 MCHC 34.6 RDW Std Deviation 37.6 RDW Coeff of Roland 11.7 Plt Count 169 MPV 10.0 Immature Gran % (Auto) 0.200 Neut % (Auto) 61.1 Lymph % (Auto) 24.9 [place] % (Auto) 8.5 Eos % (Auto) 4.5 Baso % (Auto) 0.8 Absolute Neuts (auto) 3.7 Absolute Lymphs (auto) 1.50 Nucleated RBC % 0 D-Dimer Quant (PE/DVT) 0.35 Sodium 139 Potassium 4.1 Chloride 109 H Carbon Dioxide 26.0 Anion Gap 4 L BUN 15 Creatinine 1.08 Estim Creat Clear Calc 80.92 Est GFR (MDRD) Af Amer 93 Est GFR (MDRD) Non-Af 77 BUN/Creatinine Ratio 13.9 Glucose 108 H Calcium 8.5 Troponin I High Sens 3 Radiography Diagnostic Testing: Clinical Impression(s) from Imaging Studies Chest X-Ray 02/12/22 10:33 IMPRESSION: Indeterminate opacity within the left lower lung, likely partially secondary to atelectasis and/or scarring, consider chest CT for further evaluation. Cardiomegaly. Electronically Signed: Kavitha Gramajo MD at 10:50 EDT , Chest CTA 02/12/22 11:31 IMPRESSION: 1. No evidence of pulmonary embolism or aortic dissection. 2. No infiltrate or pleural effusions are seen. 3. Mild atelectatic changes in the lower lungs. Electronically Signed: Alfonso Lopez MD at 12:09 EDT , 1 view chest x-ray obtained interpreted by myself as left lower lobe atelectasis versus mass versus infiltrate. Radiology felt there was an indeterminate opacity within the left lower lung likely partially due to atelectasis and or scarring consider CT for further evaluation. EKG Initial EKG: Attestation: I personally reviewed and interpreted this EKG as follows: Comments: Patient had an EKG on arrival that showed a sinus rhythm with a ventricular rate of 55 bpm with sinus bradycardia otherwise no acute disease process Discharge Plan Triage Chief Complaint: Back ED Provider: Hien Bustillos Dx/Rx/DC Orders Clinical Impression: Back pain, Anxiety Instructions: ED Anxiety Reaction, ED Back Pain (Acute or Chronic), ED Back Spasm, No Trauma Prescriptions: New cyclobenzaprine [cyclobenzaprine] 10 MG tablet 10 mg PO TID PRN (Reason: Muscle Spasm) Qty: 20 RF: 0 hydrocodone-acetaminophen [hydrocodone-acetaminophen] 1 TABLET tablet 1 tab PO Q4H PRN PRN (Reason: Pain) 2 Days Qty: 10 RF: 0 naproxen 500 MG tablet 500 mg PO BID Qty: 14 RF: 0 No Action atenolol 25 MG tablet 25 mg PO DAILY RF: 0 albuterol sulfate [Ventolin HFA] 1 INHALER inhaler 1 - 2 puff inhalation Q4H PRN PRN (Reason: Wheezing) Qty: 1 RF: 0 lorazepam 0.5 mg tablet 0.5 mg PO PRN PRN (Reason: Anxiety) RF: 0 Primary Care Provider: Josee Prieto Referrals: Josee Prieto MD [Primary Care Provider] - 3-5 Days Disposition Disposition: Home, Self Care
[2022-02-12] MEDS: LORazepam 2 MG/ML Syringe 1 MG IV (10:32)
--- NOTE | 2022-02-12 10:33 | RAD_ITS ---
STUDY: X-RAY CHEST REASON FOR EXAM: Male, 51 years old. Back pain , pleuritic pain TECHNIQUE: 2 frontal images of the chest were obtained COMPARISON: 04/14/2021. FINDINGS: There is a curvilinear and somewhat nodular opacity within the left lower lung. There is cardiomegaly. Normal mediastinum and elva. Normal visualized pulmonary arteries. Normal visualized aortic arch and descending thoracic aorta. Normal visualized thoracic spine. Normal visualized ribs, clavicles, and shoulders. There is no demonstrated abnormality of the visualized soft tissue structures of the upper abdomen. RAD/Chest 1 View (Portable) IMPRESSION: Indeterminate opacity within the left lower lung, likely partially secondary to atelectasis and/or scarring, consider chest CT for further evaluation. Cardiomegaly. Electronically Signed: Kavitha Gramajo MD at 10:50 EDT ,
[2022-02-12 10:38] LABS: Absolute Neutrophil Count 3.7 X10^3/uL (2.0-7.7); Basophil# 0.05 X10^3/uL; Basophil% 0.8 % (0-1); Eosinophil# 0.27 X10^3/uL; Eosinophils% 4.5 % (0-5); Hematocrit 48.6 % (40-54); Hemoglobin 16.8 g/dL (13.0-16.5); Lymphocyte % 24.9 % (19-41); Mean Corp Hgb Conc 34.6 g/dL (32-36); Mean Corpuscular Hgb 30.7 pg (27.0-32.0); Mean Corpuscular Volume 88.8 fL (80-94); Monocyte# 0.51 X10^3/uL; Monocyte% 8.5 % (0-10); NRBC Flagged by Analyzer 0 % (0-5); Neutrophil # 3.69 X10^3/uL (2.7-7.7); Neutrophil % 61.1 % (47-70); Platelet Count 169 K/mm3 (150-450); RBC Distribution Width CV 11.7 % (11.6-14.6); RBC Distribution Width SD 37.6 fl (35.1-43.9); Red Blood Count 5.47 M/mm3 (4.6-6.2)
[2022-02-12 10:50] LABS: D-Dimer Quantitative (DVT/PE) 0.35 FEU/ug/m (0.27-0.49)
[2022-02-12 10:56] LABS: Anion Gap 4 (5-15); BUN 15 mg/dL (7-18); BUN/Creat Ratio 13.9 RATIO (10-20); Calcium,Total 8.5 mg/dL (8.5-10.1); Chloride 109 mmol/L (98-107); Creatinine, Serum 1.08 mg/dL (0.70-1.30); EST Glomerular Filtration Rate 77 mL/min (>60); Est Glom Filt Rate - Afr Amer 93 mL/min (>60); Estimated Creatinine Clearance 80.92 ml/min; Glucose 108 mg/dL (74-106); Potassium 4.1 mmol/L (3.5-5.1); Sodium Level 139 mmol/L (136-145); Troponin-I HS 3 pg/mL (3.0-78.0)
[2022-02-12] MEDS: 0.9% Normal Saline 1,000 ML 150 ML IV (10:57)
[2022-02-12 11:25] VITALS: BP 136/102; PULSE 57; RESP 19; O2SAT 95
--- NOTE | 2022-02-12 11:31 | CT_ITS ---
STUDY: CTA CHEST REASON FOR EXAM: Male, 51 years old. Pleuritic chest pain, concern for pulmonary embolism. RADIATION DOSAGE (If Supplied By Facility): CTDIvol = ( 19.96 ) mGy, DLP = ( 475.88 ) mGycm TECHNIQUE: The examination was performed with the intravenous administration of IV 100mL Isovue-370. Post-processing of the angiographic images was performed, with multiplanar reformation and 3D reconstruction. Individualized dose optimization techniques were used for this CT. COMPARISON: None. FINDINGS: Normal enhancement of the main pulmonary artery and right and left pulmonary arteries. Normal enhancement of the bilateral peripheral pulmonary arteries. There is no demonstrated pulmonary embolism. Normal thoracic aorta and visualized great vessels. There is no demonstrated aortic dissection. Normal heart and pericardium. Normal mediastinum. Normal hilar regions. Normal visualized trachea and bronchi. The lungs are well expanded. There are no pulmonary infiltrates. Mild atelectatic changes in both lower lobes and lingula. There are no pleural effusions. Normal chest wall structures. There are mild degenerative changes of thoracic spine. No demonstrated acute changes in the visualized upper abdomen. CT/CTA Chest W/WO Contrast IMPRESSION: 1. No evidence of pulmonary embolism or aortic dissection. 2. No infiltrate or pleural effusions are seen. 3. Mild atelectatic changes in the lower lungs. Electronically Signed: Alfonso Lopez MD at 12:09 EDT ,
[2022-02-12] MEDS: Ondansetron 4 MG/2 ML Vial IV (11:35)
[2022-02-12] MEDS: Morphine 4 MG/ML Syringe IV (11:36)
[2022-02-12] MEDS: Ketorolac 15 MG/ML Vial IV (11:37)
[2022-02-12 12:19] VITALS: BP 120/74; PULSE 55; RESP 19; O2SAT 95
== END 2022-02-12 12:25 | disposition home or self-care (01) ==
PROVIDERS: Emergency Provider Emergency Medicine; PCP Internal Medicine; Visit Provider Emergency Medicine
DX: M54.9 Dorsalgia, unspecified (principal); R20.2 Paresthesia of skin; J98.11 Atelectasis; I10 Essential (primary) hypertension; F41.9 Anxiety disorder, unspecified; F17.210 Nicotine dependence, cigarettes, uncomplicated
CPT/HCPCS: 71045; 71275; 80048; 84484; 85025; 85379; 93005; 96361; 96374; 96375; 99283; J7030; Q9967; A4216; J2405

== ENCOUNTER 2022-04-11 10:37 | Emergency (ER) | payer SELFPAY ==
[2022-04-11] VITALS (10 sets, daily range): BP systolic 127–151; BP diastolic 86–99; PULSE 59–69; RESP 15–18; TEMP 36.6–37.2; O2SAT 94–98; BMI 29.9
--- NOTE | 2022-04-11 11:02 | EKG12_ITS ---
Test Reason : ABSCESS Blood Pressure : / mmHG Vent. Rate : 057 BPM Atrial Rate : 057 BPM P-R Int : 134 ms QRS Dur : 084 ms QT Int : 396 ms P-R-T Axes : 059 040 035 degrees QTc Int : 385 ms Sinus bradycardia Otherwise normal ECG Confirmed by GENEVIEVE JONES, TERRENCE ([id number]), news assignment editor ERIC WHALEN ([id number]) on 04/12/2022 9:02:57 AM Referred By: WANDA Confirmed By:TERRENCE VALLEJO MD
--- NOTE | 2022-04-11 11:04 | EDS_ITS ---
HPI History of Present Illness Chief Complaint: Abscess Informant: patient Onset/Context/Timing Onset: Days (3-4) Context: Gradual Onset Timing: Continuous Quality: Sore, swollen Location: Right groin Current Severity: Moderate Maximum Severity: Moderate Worsened by: Palpation/walking Relieved by: Rest and leaving it alone Narrative Narrative: Patient states he has a chronic spot in his right groin that was bothering him 4 days ago, he states he scratched out of it and intentionally opened it up, tried to squeeze out what ever was there but nothing really came out but within the next day, it was turning into an abscess. It continued to get worse into yesterday, more red and swollen. Yesterday it spontaneously started draining purulent material he states it smelled awful. He went to urgent care, most of it was drained apparently they just put him on Bactrim which she started and he put a Band-Aid on it. Yesterday, the Band-Aid was completely soaked at 1 point with pus. He put another Band-Aid on it. He woke up this morning sweating very uncomfortable, when he got up he had a near syncopal episode and he still feels very poorly now. He did not check his temperature since he did not have anything to check it with, but his significant other felt him and he felt cold and clammy. He denies any other symptoms. He is not a diabetic. [facility] Medical History Anxiety Hypertension Personal history of kidney stones Home Medications atenolol 25 mg PO DAILY 04/25/17 [History Last Taken 07/16/17] albuterol sulfate [Ventolin HFA] 1 - 2 puff INHALATION Q4H PRN PRN #1 inhaler 04/14/21 [Rx Last Taken Unknown] lorazepam 0.5 mg PO PRN PRN 02/12/22 [History Last Taken Unknown] sulfamethoxazole-trimethoprim [Bactrim DS] 1 tab PO BID 04/11/22 [History Last Taken Unknown] Allergy/AdvReac Type Severity Reaction Status Date / Time No Known Allergies Allergy Verified 04/11/22 10:41 Social History Smoking Status: Current every day smoker tobacco type: cigarettes ROS ROS ED Constitutional Constitutional ED: Reports fatigue, malaise and sweats; Denies chills Eyes Eyes: Denies change in vision or diplopia ENT ENT ED: Denies rhinorrhea or sore throat Cardiovascular Cardiovascular: Reports lightheadedness and nausea; Denies chest pain or pal pitations Respiratory/Chest Respiratory/Chest: Denies cough or dyspnea Gastrointestinal Gastrointestinal: Reports nausea; Denies abdominal pain, diarrhea or vomiting Genitourinary Genitourinary ED: Denies dysuria or hematuria Musculoskeletal Musculoskeletal: Denies back pain or neck pain Integumentary Reports abscess; Denies rash Neurologic Neurologic: Denies headache(s), paresthesias or weakness Psychiatric Psychiatric: Denies anxiety or suicidal thoughts EXAM Physical Exam Const Vital Signs: 04/11/22 10:39 04/11/22 11:00 04/11/22 11:45 Temperature 98 F 98 F 98.1 F Temperature Source Temporal Temporal Oral Pulse Rate 69 69 Respiratory Rate 18 18 Blood Pressure 151/97 H 151/97 H Blood Pressure Mean 115 115 Pulse Ox 98 98 94 Oxygen Delivery Method Room Air Room Air Room Air 04/11/22 12:36 04/11/22 12:37 04/11/22 13:00 Temperature 98.9 F 98.9 F 98.1 F Temperature Source Oral Oral Oral Pulse Rate 59 L 59 L 59 L Respiratory Rate 18 18 15 Blood Pressure 127/95 H 127/95 H 139/99 H Blood Pressure Mean 105 105 112 Pulse Ox 95 95 95 Oxygen Delivery Method Room Air Room Air Room Air 04/11/22 14:05 04/11/22 14:06 04/11/22 15:02 Temperature 98.2 F 98.2 F Temperature Source Oral Oral Pulse Rate 60 Respiratory Rate 16 18 Blood Pressure 128/86 H 146/96 H Blood Pressure Mean 100 112 Pulse Ox 95 98 Oxygen Delivery Method Room Air Room Air 04/11/22 15:03 Temperature 98.2 F Temperature Source Oral Pulse Rate Respiratory Rate Blood Pressure Blood Pressure Mean Pulse Ox Oxygen Delivery Method Positive well nourished and well developed Constitutional Narrative: Appears malaised. No distress. General Appearance ED: well developed and NAD HEENT Reports moist mucous membranes normocephalic and atraumatic Eyes PERRL and EOMs intact bilaterally Neck full ROM and supple Resp normal respiratory effort and clear to auscultation bilaterally Cardio regular rate, regular rhythm and no murmurs GI non-tender and non-distended Auscultation: normoactive bowel sounds Palpation: soft Back/Spine no CVA tenderness General Back: other FROM Extremity normal to inspection General Extremety ED: Negative for edema, pulses abnormal or tenderness General Extremity: Negative for edema or pulses abnormal Neuro oriented x3, CN's II-XII intact bilaterally and no sensory deficits noted Sensorium / Orientation: awake and alert Motor Exam: strength 5/5 throughout Skin Skin Narrative: 3 cm draining abscess with purulent discharge expressible in the right inguinal crease/groin. Tender. Surrounding erythema is mild. Otherwise no rashes or other lesions. MDM MDM MDM Narrative Medical decision making narrative: Patient presents feeling very poorly, states he woke up diaphoretic and feeling like he was going to pass out. This abscess is the only symptom/problem that he has had recently, so I performed a septic work-up and considered other sources of infection as well since this is such a small little abscess that has already been draining. Essentially his work-up was completely normal including a 1 view chest x-ray which in my interpretation is negative for any acute, his urine, labs, lactic acid. He was given fluids in addition to an empiric dose of vancomycin 15 mg/kg. On reevaluation he is feeling much better and back to normal. We performed incision and drainage of the abscess, see the procedure note. Advised to remove the packing in 2 days, take the antibiotic he was already prescribed which I think is appropriate to cover him for MRSA which I think this could be, and we discussed reasons to return he is comfortable with the plan. Lab Data Attestation: I reviewed the patient's lab results. Labs: Laboratory Results - last 24 hr 04/11/22 04/11/22 04/11/22 11:15 11:15 11:15 WBC 7.5 RBC 5.23 Hgb 15.9 Hct 45.8 MCV 87.6 MCH 30.4 MCHC 34.7 RDW Std Deviation 37.3 RDW Coeff of Roland 11.6 Plt Count 148 L MPV 10.1 Immature Gran % (Auto) 0.400 Neut % (Auto) 59.4 Lymph % (Auto) 26.6 [place] % (Auto) 9.5 Eos % (Auto) 3.6 Baso % (Auto) 0.5 Absolute Neuts (auto) 4.4 Absolute Lymphs (auto) 1.98 Nucleated RBC % 0 Sodium 136 Potassium 3.7 Chloride 108 H Carbon Dioxide 26.0 Anion Gap 2 L BUN 19 H Creatinine 0.96 Estim Creat Clear Calc 91.03 Est GFR (MDRD) Af Amer 106 Est GFR (MDRD) Non-Af 88 BUN/Creatinine Ratio 19.8 Glucose 91 Lactic Acid 0.5 Calcium 8.7 Total Bilirubin 0.30 AST 12 L ALT 24 Alkaline Phosphatase 91 Total Protein 6.9 Albumin 3.6 Globulin 3.3 Albumin/Globulin Ratio 1.1 Urine Color Urine Clarity Urine pH Ur Specific [place] Urine Protein Urine Glucose (UA) Urine Ketones Urine Occult Blood Urine Nitrite Urine Bilirubin Urine Urobilinogen Ur Leukocyte Esterase Urine RBC Urine WBC Ur Squamous Epith Cells Urine Bacteria Urine Mucus 04/11/22 11:25 WBC RBC Hgb Hct MCV MCH MCHC RDW Std Deviation RDW Coeff of Roland Plt Count MPV Immature Gran % (Auto) Neut % (Auto) Lymph % (Auto) [place] % (Auto) Eos % (Auto) Baso % (Auto) Absolute Neuts (auto) Absolute Lymphs (auto) Nucleated RBC % Sodium Potassium Chloride Carbon Dioxide Anion Gap BUN Creatinine Estim Creat Clear Calc Est GFR (MDRD) Af Amer Est GFR (MDRD) Non-Af BUN/Creatinine Ratio Glucose Lactic Acid Calcium Total Bilirubin AST ALT Alkaline Phosphatase Total Protein Albumin Globulin Albumin/Globulin Ratio Urine Color Straw Urine Clarity Clear Urine pH 6.5 Ur Specific [place] 1.010 Urine Protein Negative Urine Glucose (UA) Normal Urine Ketones Negative Urine Occult Blood Negative Urine Nitrite Negative Urine Bilirubin Negative Urine Urobilinogen Normal Ur Leukocyte Esterase Negative Urine RBC 0 SEEN Urine WBC 0 SEEN Ur Squamous Epith Cells 0 SEEN Urine Bacteria 0 SEEN Urine Mucus 0 SEEN Radiography Chest X-Ray - ED: 1 View, Read by ED Physician and No Acute Disease Diagnostic Testing: Clinical Impression(s) from Imaging Studies Chest X-Ray 04/11/22 11:45 IMPRESSION: Stable increased markings in the lingular segment of the left upper lobe suggestive of lingular scarring. Electronically Signed: Jason Zaman MD at 12:08 EDT , Rhythm Strip Rhythm Strip: Sinus Rhythm Rate: 60 Ectopy: None EKG Initial EKG: Attestation: I personally reviewed and interpreted this EKG as follows: Interpretation: No Acute Injury Pattern and Sinus Bradycardia (57) Comments: Normal EKG Prior EKG tracings: available for review Prior: Unchanged Procedures Other Procedures Procedure(s): Incision and drainage complex, right groin abscess: After informed consent, patient was prepped and draped in a sterile fashion with chlorhexidine, locally anesthetized with 3 cc of 1% plain lidocaine, incised centrally with a #10 blade, small amount of pus was expressed, some blood, I deloculated the area, and was able to express a necrotic plug as well. The cavity was irrigated with sterile saline and packed with a's short amount of quarter inch gauze. Dressed with dry sterile gauze, tolerated well with no complications. Discharge Plan Triage Chief Complaint: Abscess ED Provider: Philippe Pierce Dx/Rx/DC Orders Clinical Impression: Cutaneous abscess of groin, Diaphoresis, Near syncope Instructions: ED Abscess Incision And Drainage, ED Near-Fainting, Uncertain Cause Prescriptions: No Action atenolol 25 MG tablet 25 mg PO DAILY RF: 0 albuterol sulfate [Ventolin HFA] 1 INHALER inhaler 1 - 2 puff inhalation Q4H PRN PRN (Reason: Wheezing) Qty: 1 RF: 0 lorazepam 0.5 mg tablet 0.5 mg PO PRN PRN (Reason: Anxiety) RF: 0 sulfamethoxazole-trimethoprim [Bactrim DS] 800-160 mg Tablet 1 tab PO BID RF: 0 Primary Care Provider: Josee Prieto Referrals: Josee Prieto MD [Primary Care Provider] - As Needed Activity Restrictions/Additional Instructions: Continue the antibiotic as prescribed until completely gone, unless the culture comes back and you are told otherwise. Dressing changes as needed, if it gets dirty change it to a clean piece of gauze. Try to leave the packing in for 48 hours plus or minus, and then remove it on 04/13, and discard it. Then, continue to change dressings as needed until there is no more drainage on it. Disposition Disposition: Home, Self Care
[2022-04-11] MEDS: 0.9% Normal Saline 1,000 ML 999 ML IV (11:26)
[2022-04-11] MEDS: Ondansetron 4 MG/2 ML Vial IV (11:27)
[2022-04-11 11:35] LABS: Absolute Lymphocyte Count 1.98 X10^3/uL (0.83-4.51); Absolute Neutrophil Count 4.4 X10^3/uL (2.0-7.7); Basophil# 0.04 X10^3/uL; Basophil% 0.5 % (0-1); Eosinophil# 0.27 X10^3/uL; Eosinophils% 3.6 % (0-5); Hematocrit 45.8 % (40-54); Hemoglobin 15.9 g/dL (13.0-16.5); Lymphocyte # 1.98 X10^3/ul (0.83-4.51); Lymphocyte % 26.6 % (19-41); Mean Corp Hgb Conc 34.7 g/dL (32-36); Mean Corpuscular Hgb 30.4 pg (27.0-32.0); Mean Corpuscular Volume 87.6 fL (80-94); Mean Platelet Vol. 10.1 fl (6.2-12.0); Monocyte# 0.71 X10^3/uL; Monocyte% 9.5 % (0-10); NRBC Flagged by Analyzer 0 % (0-5); Neutrophil # 4.42 X10^3/uL (2.7-7.7); Neutrophil % 59.4 % (47-70); Platelet Count 148 K/mm3 (150-450); RBC Distribution Width CV 11.6 % (11.6-14.6); RBC Distribution Width SD 37.3 fl (35.1-43.9); Red Blood Count 5.23 M/mm3 (4.6-6.2); White Blood Count 7.5 K/mm3 (4.4-11.0)
[2022-04-11 11:37] LABS: Bacteria 0 SEEN /hpf (None Seen); Mucous, Urine 0 SEEN /hpf (<or=2+); Red Blood Cells-Urine 0 SEEN /hpf (0-5); Squamous Epithelial Cells - UA 0 SEEN /hpf (0-5); White Blood Cells 0 SEEN /hpf (0-5)
[2022-04-11 11:39] LABS: Color, Urine Straw (Yellow); Glucose, Dipstick Normal (Normal); Ketone-Dipstick Negative (Negative); Leukocyte Esterase-Dipstick Negative /ul (Negative); Nitrite-Dipstick Negative (Negative); Occult Blood-Urine Negative /ul (Negative); Protein-Dipstick Negative (Negative); Urine Bilirubin Dipstick Negative (Negative); Urine Clarity Clear (Clear); Urine Urobilinogen Normal (Normal); Urine pH 6.5 (5.0 - 8.0)
--- NOTE | 2022-04-11 11:45 | RAD_ITS ---
STUDY: X-RAY CHEST REASON FOR EXAM: Male, 51 years old. Fever TECHNIQUE: Single AP portable view of the chest. COMPARISON: Comparison is made with prior study dated 02/12/2022. FINDINGS: EKG electrodes are seen. Hyperinflation. Stable increased markings in the lingular segment of the left upper lobe suggestive of a lingular scarring. There is no demonstrated pleural abnormality. Normal size heart. Normal mediastinum and elva. Normal visualized pulmonary arteries. Normal visualized aortic arch and descending thoracic aorta. Normal visualized thoracic spine. Normal visualized ribs, clavicles, and shoulders. There is no demonstrated abnormality of the visualized soft tissue structures of the upper abdomen. RAD/Chest 1 View (Portable) IMPRESSION: Stable increased markings in the lingular segment of the left upper lobe suggestive of lingular scarring. Electronically Signed: Jason Zaman MD at 12:08 EDT ,
[2022-04-11 12:07] LABS: Lactic Acid 0.5 mmol/L (0.4-1.9)
[2022-04-11 12:13] LABS: ALB/GLOB Ratio 1.1 RATIO (0.9-2.4); AST(SGOT) 12 U/L (15-37); Alanine Aminotransfer ALT/SGPT 24 U/L (16-61); Albumin, Serum 3.6 g/dL (3.2-5.0); Alkaline Phosphatase 91 U/L (45-117); Anion Gap 2 (5-15); BUN 19 mg/dL (7-18); BUN/Creat Ratio 19.8 RATIO (10-20); Calcium,Total 8.7 mg/dL (8.5-10.1); Chloride 108 mmol/L (98-107); Creatinine, Serum 0.96 mg/dL (0.70-1.30); EST Glomerular Filtration Rate 88 mL/min (>60); Est Glom Filt Rate - Afr Amer 106 mL/min (>60); Estimated Creatinine Clearance 91.03 ml/min; Globulin 3.3 g/dL (2.2-4.2); Glucose 91 mg/dL (74-106); Potassium 3.7 mmol/L (3.5-5.1); Protein, Total 6.9 g/dL (6.4-8.2); Sodium Level 136 mmol/L (136-145)
== END 2022-04-11 15:27 | disposition home or self-care (01) ==
PROVIDERS: Emergency Provider Emergency Medicine; PCP Internal Medicine; Visit Provider Emergency Medicine
DX: L02.214 Cutaneous abscess of groin (principal); R55 Syncope and collapse; R61 Generalized hyperhidrosis; I10 Essential (primary) hypertension; F41.9 Anxiety disorder, unspecified; F17.210 Nicotine dependence, cigarettes, uncomplicated; Z79.899 Other long term (current) drug therapy
CPT/HCPCS: 10061; 10060; 71045; 80053; 81001; 83605; 85025; 87040; 93005; 96361; 96365; 96366; 96375; 99284; J7030; J7040; A4216; J2405

== ENCOUNTER 2022-04-26 11:04 | Emergency (ER) | payer SELFPAY ==
[2022-04-26 11:04] VITALS: BP 145/91; PULSE 73; RESP 14; TEMP 36.2; O2SAT 97; BMI 29.9
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
--- NOTE | 2022-04-26 11:45 | RAD_ITS ---
STUDY: X-RAY - RIGHT SHOULDER REASON FOR EXAM: Male, 51 years old. Injury/Pain TECHNIQUE: 2 view(s) of the shoulder. COMPARISON: None. FINDINGS: Please see the impression. RAD/Shoulder min 2 Views IMPRESSION: No acute fracture or dislocation in the right shoulder. 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 Clear visualized right lung. Electronically Signed: Gabriele Luna MD at 12:25 EDT ,
[2022-04-26] MEDS: Ibuprofen 600 MG Tablet 800 MG PO (11:56)
[2022-04-26 12:47] VITALS: BP 143/94; PULSE 63; RESP 18
== END 2022-04-26 12:48 | disposition home or self-care (01) ==
PROVIDERS: Emergency Provider Emergency Medicine; PCP Internal Medicine; Visit Provider Emergency Medicine
DX: S32.2XXA Fracture of coccyx, initial encounter for closed fracture (principal); S46.911A Strain of unspecified muscle, fascia and tendon at shoulder and upper arm level, right arm, initial encounter; S70.12XA Contusion of left thigh, initial encounter; V86.56XA Driver of dirt bike or motor/cross bike injured in nontraffic accident, initial encounter; I10 Essential (primary) hypertension; F41.9 Anxiety disorder, unspecified; F17.210 Nicotine dependence, cigarettes, uncomplicated; Z79.899 Other long term (current) drug therapy
CPT/HCPCS: 72220; 73030; 99282

== ENCOUNTER 2023-07-21 01:43 | Emergency (ER) | payer SELFPAY ==
[2023-07-21 01:44] VITALS: BP 183/115; PULSE 147; RESP 21; TEMP 36.6; O2SAT 98; BMI 30.7
--- NOTE | 2023-07-21 02:06 | EKG12_ITS ---
Test Reason : PALPS Blood Pressure : / mmHG Vent. Rate : 088 BPM Atrial Rate : 088 BPM P-R Int : 132 ms QRS Dur : 086 ms QT Int : 314 ms P-R-T Axes : 050 017 020 degrees QTc Int : 379 ms Normal sinus rhythm Normal ECG Confirmed by GENEVIEVE JONES, TERRENCE ([id number]), development editor RAUDEL VERA ([id number]) on 08/21/2023 1:34:52 PM Referred By: BB Confirmed By:TERRENCE VALLEJO MD
[2023-07-21 02:16] LABS: Absolute Lymphocyte Count 3.16 X10^3/uL (0.83-4.51); Absolute Neutrophil Count 3.6 X10^3/uL (2.0-7.7); Basophil# 0.07 X10^3/uL; Basophil% 0.9 % (0-1); Eosinophil# 0.29 X10^3/uL; Eosinophils% 3.7 % (0-5); Hematocrit 50.8 % (40-54); Hemoglobin 17.3 g/dL (13.0-16.5); Lymphocyte # 3.16 X10^3/ul (0.83-4.51); Lymphocyte % 39.9 % (19-41); Mean Corp Hgb Conc 34.1 g/dL (32-36); Mean Corpuscular Hgb 30.2 pg (27.0-32.0); Mean Corpuscular Volume 88.7 fL (80-94); Mean Platelet Vol. 10.1 fl (6.2-12.0); Monocyte% 10.1 % (0-10); NRBC Flagged by Analyzer 0 % (0-5); Neutrophil # 3.58 X10^3/uL (2.7-7.7); Neutrophil % 45.1 % (47-70); Platelet Count 155 K/mm3 (150-450); Red Blood Count 5.73 M/mm3 (4.6-6.2); White Blood Count 7.9 K/mm3 (4.4-11.0)
--- NOTE | 2023-07-21 02:20 | EDS_ITS ---
HPI History of Present Illness Chief Complaint: Palpitations Informant: patient Narrative Narrative: About 20 minutes prior to arrival, patient states he was resting and suddenly started having fluttering racing palpitations in his chest without other symptoms other than anxiety which he has a significant history of. Initially he states he has been having this for 30 years. Then he indicates he was referring to his anxiety, and states he has never had these palpitations like this. He cannot qualify further what this means, but it sounds like he has never been diagnosed with a dysrhythmia or had symptoms like he did tonight. He felt lightheaded but did not have any syncopal episodes. No symptoms of angina or dyspnea, no diaphoresis or focal neurologic symptoms. Did not use any substances tonight. He states his symptoms lasted about 20 minutes, they put him on the monitor here and he was tachycardic but by the time the EKG was obtained he was asymptomatic except for his anxiety. [facility] Medical History Anxiety Hypertension Personal history of kidney stones Home Medications atenolol 25 mg tablet 25 mg PO DAILY 04/25/17 [History Last Taken 07/16/17] albuterol sulfate 90 mcg/actuation aerosol inhaler (Ventolin HFA) 1 - 2 puff inhalation Q4H PRN PRN Wheezing ##1 04/14/21 [Rx Last Taken Unknown] Allergy/AdvReac Type Severity Reaction Status Date / Time No Known Allergies Allergy Verified 07/21/23 01:49 Surgical History History of eye removal Social History Smoking Status: Current every day smoker tobacco type: cigarettes ROS ROS ED Constitutional Constitutional ED: Denies chills or fever(s) Eyes Eyes: Denies change in vision or diplopia ENT ENT ED: Denies rhinorrhea or sore throat Cardiovascular Cardiovascular: Reports lightheadedness, palpitations and racing heartbeat; Denies chest pain or syncope Respiratory/Chest Respiratory/Chest: Denies cough or dyspnea Gastrointestinal Gastrointestinal: Denies abdominal pain, diarrhea, nausea or vomiting Genitourinary Genitourinary ED: Denies dysuria or hematuria Musculoskeletal Musculoskeletal: Denies back pain or neck pain Integumentary Denies abscess or rash Neurologic Neurologic: Denies headache(s), paresthesias or weakness Psychiatric Psychiatric: Reports anxiety; Denies suicidal thoughts EXAM Physical Exam Const Vital Signs: 07/21/23 01:44 07/21/23 01:50 Temperature 97.8 F Temperature Source Temporal Pulse Rate 147 H Respiratory Rate 21 H Respiratory Pattern Normal Blood Pressure 183/115 H Blood Pressure Mean 137 Pulse Ox 98 Oxygen Delivery Method Room Air Positive well nourished and well developed General Appearance ED: well developed and NAD HEENT Reports moist mucous membranes normocephalic and atraumatic Eyes Eyes Narrative: Normal pupils and eye movements on the left, right eye was enucleated Neck full ROM and supple Resp normal respiratory effort and clear to auscultation bilaterally Cardio regular rate, regular rhythm and no murmurs GI non-tender and non-distended Auscultation: normoactive bowel sounds Palpation: soft Back/Spine no CVA tenderness General Back: other FROM Extremity normal to inspection General Extremety ED: Negative for edema, pulses abnormal or tenderness General Extremity: Negative for edema or pulses abnormal Neuro oriented x3, CN's II-XII intact bilaterally and no sensory deficits noted Sensorium / Orientation: awake and alert Motor Exam: strength 5/5 throughout Psych Mood & Affect: anxious Skin no rashes or lesions noted and no wounds MDM MDM MDM Narrative Medical decision making narrative: Reviewing the telemetry data, this patient had a narrow complex tachycardia of some sort, it was in the 150 range, it appeared to be somewhat polymorphic, difficult to tell if this is ectopic atrial tachycardia, multifocal atrial tachycardia, rapid A-fib, or AVNRT. Differential includes all of these. He spontaneously broke out of it, suddenly to a heart rate in the 80s which she has been at. He initially was hypertensive but he is extremely anxious, this came down as we monitored him. While running basic labs in the emergency department he had no recurrent episodes of dysrhythmia. Labs are unremarkable, troponin is normal. At this time there is no indication to admit him, he is already on daily atenolol which I would continue and not adjust at this time, I would simply follow-up with cardiology as an outpatient. We recorded his rhythm strip on paper and entered it into the EMR. Lab Data Attestation: I reviewed the patient's lab results. Labs: Laboratory Results - last 24 hr 07/21/23 07/21/23 01:53 02:41 WBC 7.9 RBC 5.73 Hgb 17.3 H Hct 50.8 MCV 88.7 MCH 30.2 MCHC 34.1 RDW Std Deviation 39.0 RDW Coeff of Roland 12.0 Plt Count 155 MPV 10.1 Immature Gran % (Auto) 0.300 Neut % (Auto) 45.1 L Lymph % (Auto) 39.9 [place] % (Auto) 10.1 H Eos % (Auto) 3.7 Baso % (Auto) 0.9 Absolute Neuts (auto) 3.6 Absolute Lymphs (auto) 3.16 Nucleated RBC % 0 Sodium Cancelled 141 Potassium Cancelled 3.7 Chloride Cancelled 112 H Carbon Dioxide Cancelled 26.0 Anion Gap Cancelled 3 L BUN Cancelled 20 H Creatinine Cancelled 0.96 Estim Creat Clear Calc Cancelled 90.01 Est GFR (MDRD) Af Amer Cancelled 105 Est GFR (MDRD) Non-Af Cancelled 87 BUN/Creatinine Ratio Cancelled 20.7 H Glucose Cancelled 109 H Calcium Cancelled 8.7 Troponin I High Sens Cancelled 5 Rhythm Strip Rhythm Strip: Narrow complex tachycardia Rate: 149 Ectopy: PAC(s) EKG Initial EKG: Attestation: I personally reviewed and interpreted this EKG as follows: Interpretation: Sinus Rhythm and No Acute Injury Pattern Comments: Normal EKG no ectopy rate 88 Prior EKG tracings: available for review Prior: Unchanged Discharge Plan Triage Chief Complaint: Palpitations ED Provider: Philippe Pierce Dx/Rx/DC Orders Clinical Impression: SVT (supraventricular tachycardia) Instructions: ED Tachycardia: PAT Prescriptions: No Action atenolol 25 MG tablet 25 mg PO DAILY albuterol sulfate [Ventolin HFA] 1 INHALER inhaler 1 - 2 puff inhalation Q4H PRN PRN (Reason: Wheezing) Qty: 1 0RF Primary Care Provider: Josee Prieto Referrals: Manan Reynoso MD [Med Staff - Active Staff] - (Call for appointment to be seen as soon as possible with any available provider) Josee Prieto MD [Primary Care Provider] - Disposition Disposition: Home, Self Care
[2023-07-21 03:03] LABS: Anion Gap 3 (5-15); BUN 20 mg/dL (7-18); BUN/Creat Ratio 20.7 RATIO (10-20); Calcium,Total 8.7 mg/dL (8.5-10.1); Chloride 112 mmol/L (98-107); Creatinine, Serum 0.96 mg/dL (0.70-1.30); EST Glomerular Filtration Rate 87 mL/min (>60); Est Glom Filt Rate - Afr Amer 105 mL/min (>60); Estimated Creatinine Clearance 90.01 ml/min; Glucose 109 mg/dL (74-106); Potassium 3.7 mmol/L (3.5-5.1); Sodium Level 141 mmol/L (136-145); Troponin-I HS (w/2H Reflex) 5 pg/mL (3.0-78.0)
[2023-07-21 03:22] VITALS: BP 128/76; PULSE 71; RESP 16; O2SAT 97
[2023-07-21 04:44] LABS: Reflex Troponin-HS? (from REC) Y
== END 2023-07-21 03:22 | disposition home or self-care (01) ==
PROVIDERS: Emergency Provider Emergency Medicine; PCP Internal Medicine; Visit Provider Emergency Medicine
DX: I47.1 Supraventricular tachycardia (principal); I10 Essential (primary) hypertension; F41.9 Anxiety disorder, unspecified; F17.210 Nicotine dependence, cigarettes, uncomplicated; Z79.899 Other long term (current) drug therapy
CPT/HCPCS: 80048; 84484; 85025; 93005; 99284; A4216

== ENCOUNTER → 2023-08-29 | Outpatient (CLI) | payer SELFPAY ==
--- NOTE | 2023-08-29 12:37 | ECHOD_ITS ---
Reason For Study: PALPITATIONS Procedure This was a 2D Doppler, Color Flow transthoracic echocardiogram. Exam performed in department. Left Ventricle Normal LV size. Mild concentric left ventricular hypertrophy. Apical false tendon noted. The left ventricular ejection fraction is 65 %. No evidence for diastolic dysfunction. Right Ventricle Mildly dilated right ventricle. Normal systolic function. Atria There is mild biatrial dilatation. Mitral Valve Normal mitral valve. Tricuspid Valve Trivial tricuspid valve insufficiency. Normal pulmonary artery pressure. Aortic Valve Trisinus/trileaflet aortic valve. Pulmonic Valve The pulmonic valve is not well visualized. Great Vessels Normal sized aortic root. Pericardium/Pleural No pericardial effusion. MMode/2D Measurements & Calculations LVIDd: 4.8 cm IVSd: 1.2 cm Ao root diam: 2.9 cm LVIDs: 3.3 cm LVPWd: 1.2 cm RVDd: 3.4 cm FS: 30.1 % LAV(MOD-bp): 55.4 ml LVAd ap4: 27.5 cm2 LVAd ap2: 26.7 cm2 LAV(MOD-bp) Indexed: 26.5 ml/m2 LVLd ap4: 7.9 cm LVLd ap2: 7.5 cm LAV(MOD-sp2): 47.5 ml EDV(MOD-sp4): 80.5 ml EDV(MOD-sp2): 81.6 ml LAV(MOD-sp4): 55.7 ml EDV(sp4-el): 81.8 ml EDV(sp2-el): 80.0 ml LVAs ap4: 15.1 cm2 LVAs ap2: 13.8 cm2 LVLs ap4: 6.6 cm LVLs ap2: 5.9 cm ESV(MOD-sp4): 31.1 ml ESV(MOD-sp2): 28.5 ml ESV(sp4-el): 29.2 ml ESV(sp2-el): 27.6 ml EF(MOD-sp4): 61.3 % EF(MOD-sp2): 65.1 % EF(sp4-el): 64.3 % SV(MOD-sp4): 49.4 ml SV(MOD-sp2): 53.1 ml SV(sp4-el): 52.5 ml LA dimension(2D): 4.3 cm LA A4 area: 19.2 cm2 RA A4 area: 16.2 cm2 TAPSE: 2.0 cm Time Measurements MV dec time: 0.17 sec Doppler Measurements & Calculations MV E max yamil: 63.8 cm/sec Lat Peak E' Yamil: 8.0 cm/sec Med Peak E' Yamil: 8.2 cm/sec MV A max yamil: 57.6 cm/sec E/E' lat: 7.9 E/E' med: 7.7 MV E/A: 1.1 MV V2 max: 84.2 cm/sec MV dec slope: 372.4 cm/sec2 Ao V2 max: 128.6 cm/sec MV max P.8 mmHg Ao max P.6 mmHg MV V2 mean: 50.3 cm/sec Ao V2 mean: 90.2 cm/sec MV mean P.2 mmHg Ao mean P.7 mmHg MV V2 VTI: 21.6 cm Ao V2 VTI: 28.0 cm AV (velocity ratio): 0.67 LV V1 max: 97.0 cm/sec PA V2 max: 110.6 cm/sec TR max yamil: 239.8 cm/sec LV V1 max P.8 mmHg PA V2 mean: 69.8 cm/sec TR max P.0 mmHg LV V1 mean P.9 mmHg LV V1 mean: 64.2 cm/sec LV V1 VTI: 18.8 cm ECHO/Echo Complete Interpretation Summary The left ventricular ejection fraction is 65 %. Mildly dilated right ventricle. Ordering Physician: Katiana Ferrara Referring Physician: Josee Prieto Performed By: Linda Perez, TRIXIE, RVT
--- NOTE | 2023-08-29 13:42 | STRESSREP_ITS ---
Stress Test Report Date: 08/29/2023 Procedure: Exercise tolerance test Indications: Palpitations Consent: Per the patient Procedure: The patient exercised on a Paramjit protocol for 9 minutes and 32 seconds achieving a peak heart rate of 151 bpm (89% predicted maximal heart rate) with a peak blood pressure 212/92 mmHg and a peak MET capacity of approximately 11.8 MET's. The baseline ECG demonstrated sinus rhythm. The peak exercise ECG demonstrated no ischemic changes. There were no cardiac dysrhythmias pretest, during exercise, or recovery. The functional capacity was considered very good. The patient had no complaints of chest discomfort during exercise or recovery. The examination was discontinued secondary to target heart rate being achieved. Impression: 1. Technically adequate (percent predicted maximal heart rate greater than 85%) exercise tolerance test 2. Peak exercise ECG with no ischemic changes 3. There were no cardiac dysrhythmias during exercise or recovery 4. Hypertensive response to exercise This note was generated with Champion Windowsation software. It may contain incorrect words, spelling, and punctuation that were not noted in checking the note before signing.
== END | disposition home or self-care (01) ==
LOC: CVS 12:32
PROVIDERS: PCP Internal Medicine; Referring Provider Internal Medicine Cardiovascular Disease; Visit Provider Internal Medicine Cardiovascular Disease
DX: R00.2 Palpitations (principal); J44.9 Chronic obstructive pulmonary disease, unspecified; I10 Essential (primary) hypertension; Z87.891 Personal history of nicotine dependence
CPT/HCPCS: 93017; 93306

== ENCOUNTER 2023-10-24 09:31 | Emergency (ER) | payer OTHER, SELFPAY ==
[2023-10-24 09:33] VITALS: BP 154/107; PULSE 99; RESP 20; TEMP 36.8; O2SAT 99; BMI 30.7
--- NOTE | 2023-10-24 11:19 | ED.VIS.GI ---
HPI HPI - GI History of Present Illness Chief Complaint: Diarrhea Narrative Narrative: 52-year-old male presenting with feeling weak, and off mentally. Patient states he went to [facility] this weekend and his kids. He states he never been there. He states he walks his drip several times. He states his feet hurt from this but he had a good time at [facility]. He does not drink alcohol quit many years ago. He states he does not smoke cigarettes either and uses [place] sweets to bridge to quitting smoking. He sometimes does take a puff here and there but does not inhale. Patient states that Sunday morning when he flew back from [facility] he started to have chills, body aches. He has not a fever. He does admit to mild cough. He has a lot of diarrhea. He states he did not eat for many of the blood phase in [facility]. No exotic food. He states that the plane ride was very packed. [facility] Medical History Anxiety Cervical radicular pain COPD (chronic obstructive pulmonary disease) Hypertension Panic attack Personal history of kidney stones Plantar fasciitis of left foot SVT (supraventricular tachycardia) Tobacco dependence Traumatic tear of right rotator cuff Home Medications albuterol sulfate 90 mcg/actuation aerosol inhaler (Ventolin HFA) 1 - 2 puff inhalation Q6H PRN Wheezing 07/27/23 [History Last Taken Unknown] atenolol 25 mg tablet 25 mg PO BID 08/07/23 [History Last Taken Unknown] ondansetron 4 mg disintegrating tablet 4 mg PO Q8H PRN PRN Nausea #14 tabs 10/24/23 [Rx Last Taken Unknown] Allergy/AdvReac Type Severity Reaction Status Date / Time No Known Allergies Allergy Verified 10/24/23 09:32 Surgical History History of eye removal Hx of repair of right rotator cuff Social History Smoking Status: Former smoker alcohol intake: former year quit: 1996 substance use type: marijuana caffeine: No (Stopped 07/21/23) ROS ROS ED Constitutional Constitutional ED: Denies chills, fever(s) or sweats Eyes Eyes: Denies blurry vision or change in vision ENT ENT ED: Denies ear pain or sore throat Cardiovascular Cardiovascular: Denies chest pain, palpitations or racing heartbeat Respiratory/Chest Respiratory/Chest: Reports cough; Denies dyspnea or sputum Gastrointestinal Gastrointestinal: Reports diarrhea and nausea; Denies abdominal pain, constipation or vomiting Genitourinary Genitourinary ED: Denies dysuria, hematuria or urinary frequency Musculoskeletal Musculoskeletal: Reports myalgias; Denies arthralgias or neck pain Integumentary Denies abscess, Abrasions or rash Neurologic Neurologic: Denies headache(s), paresthesias or weakness Psychiatric Psychiatric: Denies anxiety, depression, suicidal ideation or suicidal thoughts Endocrine Endocrinology: Denies polydipsia or polyuria EXAM Physical Exam Const Vital Signs: 10/24/23 09:33 10/24/23 12:46 Temperature 98.2 F 97.6 F L Temperature Source Temporal Pulse Rate 99 90 Respiratory Rate 20 H 16 Blood Pressure 154/107 H 152/91 H Blood Pressure Mean 122 111 Pulse Ox 99 98 Oxygen Delivery Method Room Air Positive well nourished General Appearance ED: NAD; Negative for pallor HEENT normocephalic and atraumatic Eyes PERRL General Eye ED: Negative for pale conjunctiva or scleral icterus Resp normal respiratory effort and clear to auscultation bilaterally Auscultation: Negative for rales, rhonchi or wheezes Cardio regular rate and regular rhythm GI non-tender and non-distended Neuro CN's II-XII intact bilaterally and moves all extremities Sensorium / Orientation: alert Motor Exam: strength 5/5 throughout Psych mental status grossly normal Mood & Affect: depressed Skin General Skin Exam: Negative for jaundice or pallor MDM MDM MDM Narrative Medical decision making narrative: Presented body aches, chills, feeling rundown. Differential includes dehydration, viral syndrome, food poisoning. Patient medicated with Toradol, Zofran, normal saline. CBC and CMP will be obtained to assess white blood cell count, hemoglobin, liver, renal function, electrolytes. COVID and influenza follow-up will be obtained. CBC and MP unremarkable. On reevaluation patient is feeling much better. Patient came back positive for influenza A. Counseled patient he will need Tylenol, ibuprofen, Zofran for home and 3 to 5 days till he likely improves. In for discharge home. Impression: 1. influenza A Lab Data Labs: Laboratory Results - last 24 hr 10/24/23 10:00 WBC 3.7 L RBC 5.75 Hgb 17.3 H Hct 51.1 MCV 88.9 MCH 30.1 MCHC 33.9 RDW Std Deviation 39.7 RDW Coeff of Roland 12.1 Plt Count 115 L MPV 10.7 Immature Gran % (Auto) 0.300 Neut % (Auto) 57.6 Lymph % (Auto) 25.6 [place] % (Auto) 14.0 H Eos % (Auto) 2.2 Baso % (Auto) 0.3 Absolute Neuts (auto) 2.1 Absolute Lymphs (auto) 0.95 Nucleated RBC % 0 Sodium 137 Potassium 4.0 Chloride 108 H Carbon Dioxide 26.0 Anion Gap 3 L BUN 14 Creatinine 1.03 Estim Creat Clear Calc 83.89 Est GFR (MDRD) Af Amer 97 Est GFR (MDRD) Non-Af 80 BUN/Creatinine Ratio 13.6 Glucose 99 Calcium 8.8 Total Bilirubin 0.30 AST 24 ALT 24 Alkaline Phosphatase 85 Total Protein 7.1 Albumin 3.5 Globulin 3.6 Albumin/Globulin Ratio 1.0 Discharge Plan Triage Chief Complaint: Diarrhea ED Provider: Shaka Kapadia Dx/Rx/DC Orders Instructions: ED Influenza (Adult) Prescriptions: New ondansetron 4 mg tablet,disintegrating 4 mg PO Q8H PRN PRN (Reason: Nausea) Qty: 14 0RF No Action albuterol sulfate [Ventolin HFA] 90 mcg/actuation HFA aerosol inhaler 1 - 2 puff inhalation Q6H PRN (Reason: Wheezing) atenolol 25 mg tablet 25 mg PO BID Primary Care Provider: Josee Prieto Referrals: Josee Prieto MD [Primary Care Provider] - Disposition Disposition: Home, Self Care Discharge Date/Time: 10/24/23 12:48
[2023-10-24 11:33] LABS: Absolute Lymphocyte Count 0.95 X10^3/uL (0.83-4.51); Absolute Neutrophil Count 2.1 X10^3/uL (2.0-7.7); Basophil# 0.01 X10^3/uL; Basophil% 0.3 % (0-1); Eosinophil# 0.08 X10^3/uL; Eosinophils% 2.2 % (0-5); Hematocrit 51.1 % (40-54); Hemoglobin 17.3 g/dL (13.0-16.5); Lymphocyte # 0.95 X10^3/ul (0.83-4.51); Lymphocyte % 25.6 % (19-41); Mean Corp Hgb Conc 33.9 g/dL (32-36); Mean Corpuscular Hgb 30.1 pg (27.0-32.0); Mean Corpuscular Volume 88.9 fL (80-94); Mean Platelet Vol. 10.7 fl (6.2-12.0); Monocyte# 0.52 X10^3/uL; NRBC Flagged by Analyzer 0 % (0-5); Neutrophil # 2.14 X10^3/uL (2.7-7.7); Neutrophil % 57.6 % (47-70); Platelet Count 115 K/mm3 (150-450); RBC Distribution Width CV 12.1 % (11.6-14.6); RBC Distribution Width SD 39.7 fl (35.1-43.9); Red Blood Count 5.75 M/mm3 (4.6-6.2); White Blood Count 3.7 K/mm3 (4.4-11.0)
[2023-10-24] MEDS: Ondansetron 4 MG/2 ML Vial IV (11:39)
[2023-10-24] MEDS: Ketorolac 15 MG/ML Vial IV (11:40)
[2023-10-24] MEDS: 0.9% Normal Saline (1000mL) 1,000 ML 1000 ML IV (11:40)
[2023-10-24 11:44] LABS: AST(SGOT) 24 U/L (15-37); Alanine Aminotransfer ALT/SGPT 24 U/L (16-61); Albumin, Serum 3.5 g/dL (3.2-5.0); Alkaline Phosphatase 85 U/L (45-117); Anion Gap 3 (5-15); BUN 14 mg/dL (7-18); BUN/Creat Ratio 13.6 RATIO (10-20); Calcium,Total 8.8 mg/dL (8.5-10.1); Chloride 108 mmol/L (98-107); Creatinine, Serum 1.03 mg/dL (0.70-1.30); EST Glomerular Filtration Rate 80 mL/min (>60); Est Glom Filt Rate - Afr Amer 97 mL/min (>60); Estimated Creatinine Clearance 83.89 ml/min; Globulin 3.6 g/dL (2.2-4.2); Glucose 99 mg/dL (74-106); Protein, Total 7.1 g/dL (6.4-8.2); Sodium Level 137 mmol/L (136-145)
[2023-10-24 12:46] VITALS: BP 152/91; PULSE 90; RESP 16; TEMP 36.4; O2SAT 98
== END 2023-10-24 12:48 | disposition home or self-care (01) ==
PROVIDERS: Emergency Provider Student in an Organized Health Care Education/Training Program; PCP Internal Medicine; Visit Provider Student in an Organized Health Care Education/Training Program
DX: J10.1 Influenza due to other identified influenza virus with other respiratory manifestations (principal); J44.9 Chronic obstructive pulmonary disease, unspecified; R19.7 Diarrhea, unspecified; I10 Essential (primary) hypertension; F12.90 Cannabis use, unspecified, uncomplicated; Z79.899 Other long term (current) drug therapy; Z87.891 Personal history of nicotine dependence
CPT/HCPCS: 80053; 85025; 87428; 96361; 96374; 96375; 99283; A4216; J2405

== ENCOUNTER 2024-03-12 22:46 | Emergency (ER) | payer OTHER, SELFPAY ==
[2024-03-12 22:47] VITALS: BP 143/93; PULSE 64; RESP 16; TEMP 36.3; O2SAT 97; BMI 31.6
--- NOTE | 2024-03-12 23:43 | EDS_ITS ---
HPI History of Present Illness Chief Complaint: Eye Problem Informant: patient and spouse/S.O. Narrative Narrative: Patient is a 53-year-old male with past medical history of COPD hypertension and enucleation of the right eye. He states over the last 1 to 2 days he has been working on a house and exposed to multiple chemicals as well as dust and debris. He denies any contact lens use. He states he has noticed some swelling and pain to the left lower eyelid. He denies any vision change or light sensitivity but has concern for potential infection based on his symptoms and therefore comes in for evaluation [facility] Medical History (Updated 03/13/24 @ 05:[address] Curt Burch DO) Anxiety Cervical radicular pain COPD (chronic obstructive pulmonary disease) History of nicotine dependence Hypertension Palpitations Panic attack Personal history of kidney stones Plantar fasciitis of left foot SVT (supraventricular tachycardia) Tobacco dependence Traumatic tear of right rotator cuff Home Medications albuterol sulfate 90 mcg/actuation aerosol inhaler (Ventolin HFA) 1 - 2 puff inhalation Q6H PRN Wheezing 07/27/23 [History Last Taken Unknown] atenolol 25 mg tablet 25 mg PO BID 08/07/23 [History Last Taken Unknown] ondansetron 4 mg disintegrating tablet 4 mg PO Q8H PRN PRN Nausea #14 tabs 10/24/23 [Rx Last Taken Unknown] doxycycline hyclate 100 mg capsule 100 mg PO BID 14 days #28 caps 03/12/24 [Rx Last Taken Unknown] yhalvddi-mghkhbemw-htxskqsp 3.5 mg/mL-10,000 unit/mL-0.1% eye drops (Maxitrol) 2 drp LEFT EYE 4X/DAY 10 days #5 mL 03/12/24 [Rx Last Taken Unknown] Allergy/AdvReac Type Severity Reaction Status Date / Time No Known Allergies Allergy Verified 03/12/24 22:50 Surgical History History of eye removal Hx of repair of right rotator cuff Social History Smoking Status: Former smoker alcohol intake: former year quit: 1996 substance use type: marijuana caffeine: No (Stopped 07/21/23) ROS ROS ED Constitutional Constitutional ED: Denies chills or fever(s) Eyes Eyes: Reports other Details: Positive left eye pain ; Denies change in vision or diplopia ENT ENT ED: Denies sore throat Cardiovascular Cardiovascular: Denies chest pain Respiratory/Chest Respiratory/Chest: Denies cough or dyspnea Gastrointestinal Gastrointestinal: Denies abdominal pain, diarrhea, nausea or vomiting Genitourinary Genitourinary ED: Denies dysuria Musculoskeletal Musculoskeletal: Denies myalgias or neck pain Integumentary Denies rash Neurologic Neurologic: Denies headache(s) Hematologic/Lymphatic Hematologic/Lymphatic: Denies easy bleeding or easy bruising EXAM Physical Exam Const Vital Signs: 03/12/24 22:47 Temperature 97.3 F L Temperature Source Temporal Pulse Rate 64 Respiratory Rate 16 Blood Pressure 143/93 H Blood Pressure Mean 109 Pulse Ox 97 Oxygen Delivery Method Room Air Positive well nourished and well developed General Appearance ED: well developed HEENT HEENT Narrative: Normocephalic atraumatic Eyes Eyes Narrative: Patient has chronic right eye enucleation. Left eye pupil was equal reactive to light extraocular muscles are intact. There is faint scleral injection. There is soft tissue swelling to the left lower eyelid examining the conjunctiva displays 2 small internal hordeolum's 1 near the lateral aspect and one near the medial third. Otherwise there is no retained foreign body or signs of globe injury Neck supple Resp normal respiratory effort and clear to auscultation bilaterally Cardio regular rate and regular rhythm Extremity normal to inspection Neuro oriented x3, CN's II-XII intact bilaterally, moves all extremities and no sensory deficits noted Sensorium / Orientation: alert Motor Exam: strength 5/5 throughout Psych mental status grossly normal Skin Skin Narrative: Patient has soft tissue swelling to the left lower eyelid with faint erythema a nd internal exam shows to an internal stye/hordeolum's as documented above. However there is no diffuse erythema or swelling along the left orbit to suggest periorbital cellulitis MDM MDM MDM Narrative Medical decision making narrative: Patient presented to the ER hypertensive but has a past medical history of this and otherwise with stable vitals. He denied any contact lens use and he denies any trauma causing irritation to his left eye. Differential diagnosis is for bacterial versus viral conjunctivitis versus allergic conjunctivitis versus foreign body/corneal abrasion versus hordeolum versus periorbital or orbital cellulitis. The patient does not have fever there is no diffuse erythema or swelling along the left eye and he does not have pain with eye motion going against periorbital and orbital cellulitis. Exam does not show any obvious findings for retained foreign body or corneal abrasion. There is note of 2 small internal hordeolum's along the left lower eyelid which would correlate with his exposure and recent symptoms. At this time without signs of globe injury or systemic infection there is no need for further workup and he can be placed on antibiotic drops secondary to the infectious process and is otherwise safe for discharge History & Record Review Discussion w/independent historian: Patient and Significant other Discharge Plan Triage Chief Complaint: Eye Problem ED Provider: Curt Burch Dx/Rx/DC Orders Clinical Impression: Internal hordeolum of left eye, COPD (chronic obstructive pulmonary disease), Hypertension Instructions: ED Stye Prescriptions: New neomycin-polymyxin B-dexameth [Maxitrol] 3.5mg/mL-10,000 unit/mL-0.1 % drops,suspension 2 drp LEFT EYE 4X/DAY 10 Days Qty: 5 0RF doxycycline hyclate 100 mg capsule 100 mg PO BID 14 Days Qty: 28 0RF No Action albuterol sulfate [Ventolin HFA] 90 mcg/actuation HFA aerosol inhaler 1 - 2 puff inhalation Q6H PRN (Reason: Wheezing) atenolol 25 mg tablet 25 mg PO BID ondansetron 4 mg tablet,disintegrating 4 mg PO Q8H PRN PRN (Reason: Nausea) Qty: 14 0RF Primary Care Provider: Josee Prieto Referrals: Josee Prieto MD [Primary Care Provider] - Paula Crisostomo MD [Med Staff - Active Staff] - Activity Restrictions/Additional Instructions: Use the antibiotic eyedrops along with warm compresses for the next 7 to 10 days to resolve the internal styes. If there is no improvement then start taking the doxycycline/oral antibiotic. If this fails he will need to see ophthalmology to discuss incision and drainage. If you have any further concerns please return to the ER for repeat evaluation Disposition Disposition: Home, Self Care Discharge Date/Time: 03/13/24 00:20
[2024-03-13 00:09] VITALS: BP 136/90; PULSE 60; RESP 18; TEMP 36.4; O2SAT 98
== END 2024-03-13 00:20 | disposition home or self-care (01) ==
PROVIDERS: Emergency Provider Emergency Medicine; PCP Internal Medicine; Visit Provider Emergency Medicine
DX: H00.025 Hordeolum internum left lower eyelid (principal); J44.9 Chronic obstructive pulmonary disease, unspecified; Z57.2 Occupational exposure to dust; I10 Essential (primary) hypertension; Z79.899 Other long term (current) drug therapy; Z87.891 Personal history of nicotine dependence
CPT/HCPCS: 99283

== ENCOUNTER 2024-07-05 19:57 | Emergency (ER) | payer OTHER, SELFPAY ==
[2024-07-05 19:57] VITALS: BP 167/99; PULSE 59; RESP 16; TEMP 37.3; O2SAT 97; BMI 31.8
--- NOTE | 2024-07-05 20:26 | ED.VIS.DENTA ---
HPI History of Present Illness Chief Complaint: Dental Informant: patient Narrative Narrative: 53-year-old male presenting to the emergency room with dental pain concern for abscess. Patient states he was recently (about 2 weeks ago) seen by dentist was told he needed a crown. He states he was put on a penicillin-based antibiotic for about a week. He is saving up money for that. He notes that yesterday he was eating and a piece of the lower left posterior molar broke off. He states he used a file to file it down. Now he notes some discomfort inferior to the mandible and continued dental pain. No reported fevers. [facility] Medical History History of nicotine dependence Palpitations Plantar fasciitis of left foot Cervical radicular pain Traumatic tear of right rotator cuff Tobacco dependence Panic attack SVT (supraventricular tachycardia) Personal history of kidney stones COPD (chronic obstructive pulmonary disease) Hypertension Anxiety Home Medications ?Medication ?Instructions ?Recorded ?Last Taken ?Type albuterol sulfate 90 mcg/actuation 1 - 2 puff inhalation Q6H PRN 07/27/23 Unknown History aerosol inhaler (Ventolin HFA) Wheezing atenolol 25 mg tablet 25 mg PO BID 08/07/23 Unknown History ondansetron 4 mg disintegrating 4 mg PO Q8H PRN PRN Nausea #14 tabs 10/24/23 Unknown Rx tablet doxycycline hyclate 100 mg capsule 100 mg PO BID 14 days #28 caps 03/12/24 Unknown Rx [place]-flywepkew-olqobqch 3.5 2 drp LEFT EYE 4X/DAY 10 days #5 mL 03/12/24 Unknown Rx mg/mL-10,000 unit/mL-0.1% eye drops (Maxitrol) clindamycin HCl 300 mg capsule 300 mg PO Q6H #40 CAPSULES 07/05/24 Unknown Rx (Cleocin HCl) ibuprofen 600 mg tablet 600 mg PO Q6H PRN PRN pain #20 07/05/24 Unknown Rx TABLETS oxycodone-acetaminophen 5 mg-325 1 tab PO Q6H PRN PRN Pain 3 days 07/05/24 Unknown Rx mg tablet #12 TABLETS Allergy/AdvReac Type Severity Reaction Status Date / Time No Known Allergies Allergy Verified 07/05/24 19:59 Surgical History Hx of repair of right rotator cuff History of eye removal Social History Smoking Status: Current every day smoker tobacco type: cigars alcohol intake: former year quit: 1996 substance use type: marijuana caffeine: No (Stopped 07/21/23) ROS ROS ED Constitutional Constitutional ED: Denies chills, fever(s) or weight loss Eyes Eyes: Denies change in vision or diplopia ENT ENT ED: Reports other Details: See history of present illness ; Denies ear pain, rhinorrhea or sore throat Cardiovascular Cardiovascular: Denies chest pain, orthopnea, palpitations or racing heartbeat Respiratory/Chest Respiratory/Chest: Denies cough, dyspnea or orthopnea Gastrointestinal Gastrointestinal: Denies abdominal pain, diarrhea, nausea or vomiting Genitourinary Genitourinary ED: Denies dysuria, hematuria or urinary frequency Musculoskeletal Musculoskeletal: Denies arthralgias or myalgias Integumentary Denies abscess or rash Neurologic Neurologic: Denies headache(s) or weakness Psychiatric Psychiatric: Denies anxiety, depression, suicidal ideation or suicidal thoughts Endocrine Endocrinology: Denies polydipsia, polyphagia or polyuria Allergic/Immunologic Allergic/Immunologic ED: Denies mouth swelling, tongue swelling or urticaria EXAM Physical Exam Const Vital Signs: 07/05/24 19:57 Temperature 99.2 F H Temperature Source Temporal Pulse Rate 59 L Respiratory Rate 16 Blood Pressure 167/99 H Blood Pressure Mean 121 Pulse Ox 97 Oxygen Delivery Method Room Air Positive well nourished and well developed General Appearance ED: well developed and NAD HEENT Reports normocephalic, head/scalp atraumatic and moist mucous membranes HEENT Narrative: Left lower posterior most molar demonstrates the posterior third of the tooth to be missing. There is no focal gum swelling or evidence of gingivitis. There is no floor the mouth swelling tongue appears normal. No peritonsillar or retropharyngeal abscess noted. I do not appreciate any significant mandibular swelling or erythema. There is no trismus. Eyes PERRL and EOMs intact bilaterally Neck no lymphadenopathy, supple and no JVD Resp normal respiratory effort and clear to auscultation bilaterally Cardio regular rate, regular rhythm and no murmurs GI normal to inspection, nondistended, normoactive bowel sounds and non-tender Palpation: soft Back/Spine no CVA tenderness and normal ROM Extremity normal to inspection General Extremety ED: Negative for edema General Extremity: Negative for edema Neuro oriented x3 and CN's II-XII intact bilaterally Sensorium / Orientation: alert Motor Exam: strength 5/5 throughout Psych mental status grossly normal Mood & Affect: Negative for depressed or tearful Skin no rashes or lesions noted and no wounds MDM MDM MDM Narrative Medical decision making narrative: Differential diagnosis includes but not limited to dental abscess dental cavity dental fracture gingivitis ANUG Quique's angina As the patient was recently on a penicillin-based antibiotic from the dentist we will write for him to have clindamycin. I will write for anti-inflammatories a few Percocet for severe pain. Would recommend dental follow-up as soon as possible. Patient is comfortable with this plan History & Record Review Discussion w/independent historian: Patient Discharge Plan Triage Chief Complaint: Dental ED Provider: Hubert Fernandez Dx/Rx/DC Orders Clinical Impression: Abscess, dental, Pain, dental Instructions: Dental Abscess Prescriptions: New clindamycin HCl [Cleocin HCl] 300 mg capsule 300 mg PO Q6H Qty: 40 0RF oxycodone-acetaminophen 5-325 mg tablet 1 tab PO Q6H PRN PRN (Reason: Pain) 3 Days Qty: 12 0RF ibuprofen 600 mg tablet 600 mg PO Q6H PRN PRN (Reason: pain) Qty: 20 0RF No Action albuterol sulfate [Ventolin HFA] 90 mcg/actuation HFA aerosol inhaler 1 - 2 puff inhalation Q6H PRN (Reason: Wheezing) atenolol 25 mg tablet 25 mg PO BID ondansetron 4 mg tablet,disintegrating 4 mg PO Q8H PRN PRN (Reason: Nausea) Qty: 14 0RF neomycin-polymyxin B-dexameth [Maxitrol] 3.5mg/mL-10,000 unit/mL-0.1 % drops,suspension 2 drp LEFT EYE 4X/DAY 10 Days Qty: 5 0RF doxycycline hyclate 100 mg capsule 100 mg PO BID 14 Days Qty: 28 0RF Primary Care Provider: Josee Prieto Referrals: Josee Prieto MD [Primary Care Provider] - Activity Restrictions/Additional Instructions: Please follow-up with dentistry as soon as possible. Print Language: Kyrgyz Disposition Disposition: Home, Self Care
[2024-07-05 20:36] VITALS: PULSE 68; O2SAT 98
[2024-07-05] MEDS: Clindamycin HCl 150 MG Capsule 300 MG PO (21:13)
--- NOTE | 2024-07-05 21:14 | ED.RN ---
Pt came back in to triage after being discharged, states he now wants his meds sent to the hospital pharmacy instead of [facility]. After some discussion pt states he really just wants a dose of antibiotics to take tonight. ED MD ordered one dose of ATB, given to pt by this RN.
== END 2024-07-05 20:37 | disposition home or self-care (01) ==
LOC: ED 20:29
PROVIDERS: Emergency Provider Emergency Medicine; PCP Internal Medicine; Visit Provider Emergency Medicine
DX: K04.7 Periapical abscess without sinus (principal); J44.9 Chronic obstructive pulmonary disease, unspecified; K08.89 Other specified disorders of teeth and supporting structures; S02.5XXA Fracture of tooth (traumatic), initial encounter for closed fracture; X58.XXXA Exposure to other specified factors, initial encounter; I10 Essential (primary) hypertension; F17.290 Nicotine dependence, other tobacco product, uncomplicated; Z79.899 Other long term (current) drug therapy
CPT/HCPCS: 99282

== ENCOUNTER 2025-01-20 22:42 | Emergency (ER) | payer OTHER, SELFPAY ==
[2025-01-20 22:42] VITALS: BP 167/102; PULSE 71; RESP 16; TEMP 36.1; O2SAT 99
--- NOTE | 2025-01-20 23:23 | EX.ED.DYSGE1 ---
HPI History of Present Illness Chief Complaint: Ear Problem Narrative Narrative: 54-year-old male past medical history of hypertension, COPD, smoker, presents with right ear pain that began at 7 PM this evening, approximately 4-1/2 hours ago. He states that this morning started having problems with his left ear. He [place] plated that and his symptoms improved. He had sudden onset of right ear pain with muffled hearing out of his right ear. He denies any fevers or chills, no drainage, no exacerbating or alleviating factors. He states that the pain in his right ear is so severe that he cannot stand it any longer. [facility] Medical History History of nicotine dependence Palpitations Plantar fasciitis of left foot Cervical radicular pain Traumatic tear of right rotator cuff Tobacco dependence Panic attack SVT (supraventricular tachycardia) Personal history of kidney stones COPD (chronic obstructive pulmonary disease) Hypertension Anxiety Home Medications ?Medication ?Instructions ?Recorded ?Last Taken ?Type albuterol sulfate 90 mcg/actuation 1 - 2 puff inhalation Q6H PRN 07/27/23 Unknown History aerosol inhaler (Ventolin HFA) Wheezing atenolol 25 mg tablet 25 mg PO BID 08/07/23 Unknown History ondansetron 4 mg disintegrating 4 mg PO Q8H PRN PRN Nausea #14 tabs 10/24/23 Unknown Rx tablet doxycycline hyclate 100 mg capsule 100 mg PO BID 14 days #28 caps 03/12/24 Unknown Rx lgktayzl-xqjjvlxai-igpnoqpb 3.5 2 drp LEFT EYE 4X/DAY 10 days #5 mL 03/12/24 Unknown Rx mg/mL-10,000 unit/mL-0.1% eye drops (Maxitrol) clindamycin HCl 300 mg capsule 300 mg PO Q6H #40 CAPSULES 07/05/24 Unknown Rx (Cleocin HCl) ibuprofen 600 mg tablet 600 mg PO Q6H PRN PRN pain #20 07/05/24 Unknown Rx TABLETS oxycodone-acetaminophen 5 mg-325 1 tab PO Q6H PRN PRN Pain 3 days 07/05/24 Unknown Rx mg tablet #12 TABLETS amoxicillin 875 mg-potassium 1 tab PO BID #20 tabs 01/20/25 Unknown Rx clavulanate 125 mg tablet hydrocodone-acetaminophen 5-325mg 1 tab PO Q6H PRN pain 3 days #10 01/20/25 Unknown Rx 5mg-325mg tabs Allergy/AdvReac Type Severity Reaction Status Date / Time No Known Allergies Allergy Verified 01/20/25 22:42 Surgical History Hx of repair of right rotator cuff History of eye removal Social History Smoking Status: Current every day smoker tobacco type: cigars alcohol intake: former year quit: 1996 substance use type: marijuana caffeine: No (Stopped 07/21/23) ROS ROS ED ROS Narrative Review of systems positive for right ear pain. Previous left ear pain-resolved. No fevers or chills. No loss of hearing but perhaps muffled out of right ear. No exacerbating or alleviating factors. No radiation of pain. EXAM Physical Exam Narrative Exam Narrative: Afebrile. Vital signs noted. Nontoxic-appearing. Cardiovascular examination reveals a regular rate and rhythm. Lungs are clear to auscultation bilaterally. Abdomen is soft and nontender with positive bowel sounds. Neurological examination nonfocal and nonlateralizing. Ambulatory in ED. Inspection of the right TM does show erythema with bulging TM consistent with acute otitis media. No noted perforation. No mastoid tenderness. Left TM has more of a serous otitis. Neck soft and supple without meningismus. Const Vital Signs: 01/20/25 22:42 01/20/25 23:31 Temperature 97 F L 98.7 F Temperature Source Temporal Pulse Rate 71 87 Respiratory Rate 16 18 Blood Pressure 167/102 H 149/98 H Blood Pressure Mean 123 115 Pulse Ox 99 97 Oxygen Delivery Method Room Air MDM MDM MDM Narrative Medical decision making narrative: No feel differential diagnosis is applicable. I feel that his right ear pain is most likely from an acute otitis media. I discussed with the patient antibiotic use and smoking cessation. He can use nasal steroids as well. Patient had driven here, but was insistent that he needed analgesia and that is the reason while he was here. I told him that he should not expect that 1 dose of narcotic pain medication would immediately take away his ear pain. He needs to continue antibiotics, smoking cessation, [id number] nasal steroids and continued insufflation. He might get pain relief if he ends up having perforation of the TM. I wrote him a prescription for Augmentin and for a few [place] tablets, and he stated that he would walk home or find a ride so he is well given 1 [place] tablet here and his first dose of Augmentin. I feel he can be discharged to follow-up. Return instructions reviewed. Disposition is discharged home in stable condition. Discharge Plan Triage Chief Complaint: Ear Problem ED Provider: Kalen Kennedy Dx/Rx/DC Orders Clinical Impression: Otitis media, Acute pain of right ear Instructions: ED Otitis Media Adult Prescriptions: New amoxicillin-pot clavulanate 875-125 mg tablet 1 tab PO BID Qty: 20 0RF hydrocodone-acetaminophen 5-325 mg tablet 1 tab PO Q6H PRN (Reason: pain) 3 Days Qty: 10 0RF No Action albuterol sulfate [Ventolin HFA] 90 mcg/actuation HFA aerosol inhaler 1 - 2 puff inhalation Q6H PRN (Reason: Wheezing) atenolol 25 mg tablet 25 mg PO BID ondansetron 4 mg tablet,disintegrating 4 mg PO Q8H PRN PRN (Reason: Nausea) Qty: 14 0RF neomycin-polymyxin B-dexameth [Maxitrol] 3.5mg/mL-10,000 unit/mL-0.1 % drops,suspension 2 drp LEFT EYE 4X/DAY 10 Days Qty: 5 0RF doxycycline hyclate 100 mg capsule 100 mg PO BID 14 Days Qty: 28 0RF clindamycin HCl [Cleocin HCl] 300 mg capsule 300 mg PO Q6H Qty: 40 0RF oxycodone-acetaminophen 5-325 mg tablet 1 tab PO Q6H PRN PRN (Reason: Pain) 3 Days Qty: 12 0RF ibuprofen 600 mg tablet 600 mg PO Q6H PRN PRN (Reason: pain) Qty: 20 0RF Primary Care Provider: Josee Prieto Referrals: Michael Murrieta MD [Med Staff - Active Staff] - As Needed Josee Prieto MD [Primary Care Provider] - Activity Restrictions/Additional Instructions: Follow-up with your primary care provider in 3 to 7 days. Follow-up with otolaryngology as needed. Stop smoking. Print Language: Chinese Disposition Disposition: Home, Self Care Discharge Date/Time: 01/20/25 23:35
[2025-01-20] MEDS: HYDROcodone Bitartrate/Apap 5/325 Tablet PO (23:27)
[2025-01-20] MEDS: Amox/Clavulanate 875 MG Tablet PO (23:27)
[2025-01-20 23:31] VITALS: BP 149/98; PULSE 87; RESP 18; TEMP 37.1; O2SAT 97
== END 2025-01-20 23:35 | disposition home or self-care (01) ==
PROVIDERS: Emergency Provider Emergency Medicine; PCP Internal Medicine; Visit Provider Emergency Medicine
DX: H66.91 Otitis media, unspecified, right ear (principal); J44.9 Chronic obstructive pulmonary disease, unspecified; H65.92 Unspecified nonsuppurative otitis media, left ear; I10 Essential (primary) hypertension; Z79.899 Other long term (current) drug therapy; F17.290 Nicotine dependence, other tobacco product, uncomplicated
CPT/HCPCS: 99283